=== PATIENT | female | born 1945 | race African-American/Black ===

== ENCOUNTER 2018-02-02 18:48 | Emergency (ER) | payer MEDICARE, OTHER ==
[~2018-02-02] VITALS: Ht 182.9 cm; Wt 113.4 kg
--- NOTE | 2018-02-02 18:55 | NUR ---
[facility]- NON TRAUMATIC LEFT LEG PAIN. STARTED TODAY. PT FINISHED HER DIALYSIS. PATIENT IS TRACH DEPENDENT. BREATHING EVEN AND UNLABORED. NO DISTRESS. VITALS STABLE. SAFETY AND COMFORT MEASURES IN PLACE. AWAITING MD ORDERS.
--- NOTE | 2018-02-02 19:16 | NUR ---
REPORT GIVEN TO RAVIN KHANNA FOR MADELAINE.
--- NOTE | 2018-02-02 19:17 | NUR ---
RECEIVED REPORT FROM [facility] FOR MADELAINE
[2018-02-02 19:50] LABS: BASOPHILS % (AUTO) 0.3 % (0.0-2.0); EOSINOPHILS % (AUTO) 4.7 % (0.0-6.0); HEMATOCRIT 32 % (33-45); HEMOGLOBIN 10.4 g/dL (11.5-14.8); LYMPHOCYTES % (AUTO) 17.4 % (20.0-44.0); MEAN CORPUSCULAR HGB CONC 33 g/dl (31.0-36.0); MEAN CORPUSCULAR VOLUME 92 fL (82-100); MONOCYTES # (AUTO) 0.3 /CMM (0.1-1.30); MONOCYTES % (AUTO) 5.9 % (2.0-12.0); NEUTROPHILS # (AUTO) 4.3 /CMM (1.8-8.9); NEUTROPHILS % (AUTO) 71.7 % (43.0-81.0); PLATELET COUNT (AUTO) 237 /CMM (150-450); RDW COEFFICIENT OF VARIATION 18.2 (11.5-15.0); RED BLOOD CELL COUNT(AUTO) 3.44 MIL/uL (4.0-5.2); WHITE BLOOD COUNT (AUTO) 5.9 K/uL (4.3-11.0)
[2018-02-02 20:03] LABS: INR 0.88 (0.85-1.15)
[2018-02-02 20:16] LABS: CALCIUM, SERUM 9.4 mg/dL (8.5-10.1); CARBON DIOXIDE 28 mmol/L (21-32); CHLORIDE 98 mmol/L (98-107); CREATININE 1.8 mg/dL (0.6-1.3); GLUCOSE 89 mg/dL (74-106); POTASSIUM 3.1 mmol/L (3.5-5.1); SODIUM SERUM 135 mmol/L (136-145); UREA NITROGEN, BLOOD 24 mg/dL (7-18)
[2018-02-02] MEDS ORDERED: POTASSIUM CHLORIDE 20 MEQ TAB.PRT.SR PO ONE ×2 (20:55→21:00)
[2018-02-02] MEDS ORDERED: HYDROCODONE/APAP 10/325MG 1 EA TABLET ONE (20:55)
[2018-02-02] MEDS ORDERED: HYDROCODONE/APAP 10/325MG 1 EA TABLET GT ONE (21:00)
--- NOTE | 2018-02-02 21:01 | NUR ---
CALLED [facility] FOR TRANSPORT ETA OF 30 MINS WAS GIVEN. TRIP# [id number]
--- NOTE | 2018-02-02 21:34 | NUR ---
Patient discharged to home in stable condition. Written and verbal after care instructions given. Patient verbalizes understanding of instruction.IV removed. Catheter intact and site benign. Pressure and 4x4 applied to site. No bleeding noted. REPORT GIVEN TO [facility] FOR MADELAINE. [facility] VSS UPON DISCHARGE
[2018-02-02 21:36] VITALS: BP 102/54
== END 2018-02-02 21:39 | disposition home or self-care (01) ==
LOC: ER 18:52
DX: S83.142A Lateral subluxation of proximal end of tibia, left knee, initial encounter (principal); G89.29 Other chronic pain; M25.562 Pain in left knee; E87.6 Hypokalemia; D64.9 Anemia, unspecified; E11.22 Type 2 diabetes mellitus with diabetic chronic kidney disease; N18.6 End stage renal disease; Z99.2 Dependence on renal dialysis; G40.909 Epilepsy, unspecified, not intractable, without status epilepticus; I48.91 Unspecified atrial fibrillation; Z93.1 Gastrostomy status; Z93.0 Tracheostomy status; X58.XXXA Exposure to other specified factors, initial encounter; Y93.89 Activity, other specified; Y92.89 Other specified places as the place of occurrence of the external cause; Y99.8 Other external cause status
CPT/HCPCS: 36415; 73560; 80048; 85025; 85730; 93970; 99285; A4606; Z7610

== ENCOUNTER 2018-03-20 14:54 | Inpatient (IN) | payer MEDICARE, OTHER ==
[~2018-03-20] VITALS: Ht 162.6 cm; Wt 112.0 kg
[2018-03-20] MEDS ORDERED: NA P133E RC (15:30)
[2018-03-20] MEDS ORDERED: VIT1TABL44 GT (15:30)
[2018-03-20] MEDS ORDERED: HYDR-3974 GT (15:30)
[2018-03-20] MEDS ORDERED: DIPH25CA6 GT (15:30)
[2018-03-20] MEDS ORDERED: ACET650S26 GT (15:30)
[2018-03-20] MEDS ORDERED: MIDO10TA GT (15:30)
[2018-03-20] MEDS ORDERED: AMIN30LI4 GT (15:30)
[2018-03-20] MEDS ORDERED: ASCO500T9 GT (15:30)
[2018-03-20] MEDS ORDERED: FAMO20TA8 GT (15:30)
[2018-03-20] MEDS ORDERED: [UNRECOGNIZED DRUG - CODE] GT (15:30)
[2018-03-20] MEDS ORDERED: MAGN400O6 GT (15:30)
[2018-03-20] MEDS ORDERED: AMIO200T4 GT (15:30)
[2018-03-20] MEDS ORDERED: IV NS 0.9% 500 ML BAG IV ONE ×2 (15:30→18:00)
[2018-03-20] MEDS ORDERED: BISA10SU8 RC (15:30)
[2018-03-20] MEDS ORDERED: LEVE100S GT (15:30)
[2018-03-20] MEDS ORDERED: PRED20TA GT (15:30)
[2018-03-20] MEDS ORDERED: NUT.237L67 GT (15:30)
[2018-03-20] MEDS ORDERED: LEVO125T8 GT (15:30)
[2018-03-20 15:57] LABS: BASOPHILS % (AUTO) 0.2 % (0.0-2.0); EOSINOPHILS % (AUTO) 0.3 % (0.0-6.0); HEMATOCRIT 42 % (33-45); HEMOGLOBIN 13.1 g/dL (11.5-14.8); LYMPHOCYTES # (AUTO) 1.4 /CMM (0.8-4.8); LYMPHOCYTES % (AUTO) 7.5 % (20.0-44.0); MEAN CORPUSCULAR HEMOGLOBIN 29 PG (26.0-33.0); MEAN CORPUSCULAR HGB CONC 31 g/dl (31.0-36.0); MEAN CORPUSCULAR VOLUME 93 fL (82-100); MONOCYTES # (AUTO) 0.1 /CMM (0.1-1.30); MONOCYTES % (AUTO) 0.5 % (2.0-12.0); NEUTROPHILS % (AUTO) 91.5 % (43.0-81.0); PLATELET COUNT (AUTO) 83 /CMM (150-450); RDW COEFFICIENT OF VARIATION 18.4 (11.5-15.0); RED BLOOD CELL COUNT(AUTO) 4.56 MIL/uL (4.0-5.2); WHITE BLOOD COUNT (AUTO) 18.6 K/uL (4.3-11.0)
[2018-03-20 16:06] LABS: CALCIUM, SERUM 8.3 mg/dL (8.5-10.1); CARBON DIOXIDE 21 mmol/L (21-32); CHLORIDE 95 mmol/L (98-107); CREATININE 3.4 mg/dL (0.6-1.3); GLUCOSE 156 mg/dL (74-106); POTASSIUM 3.7 mmol/L (3.5-5.1); SODIUM SERUM 131 mmol/L (136-145); UREA NITROGEN, BLOOD 64 mg/dL (7-18)
[2018-03-20 16:12] LABS: ALANINE AMINOTRANSFERASE 21 U/L (12-78); ALKALINE PHOSPHATASE 216 U/L (46-116); ASPARTATE AMINOTRANSFERASE 18 U/L (15-37); BILIRUBIN,DIRECT 0.1 mg/dL (0.0-0.2); BILIRUBIN,TOTAL 0.4 mg/dL (0.2-1.0); TOTAL PROTEIN, SERUM 6.1 g/dL (6.4-8.2)
[2018-03-20 16:14] LABS: ALBUMIN 1.4 g/dL (3.4-5.0); TROPONIN I 0.139 ng/mL (0.00-0.056)
[2018-03-20] MEDS ORDERED: PIPERACILLIN /TAZOBACTAM 3.375 G in IV D5W 50 ML IV ONE (16:30)
[2018-03-20] MEDS ORDERED: VANCOMYCIN 1 GM in IV D5W 250 ML IV ONE (16:30)
[2018-03-20] MEDS ORDERED: ASPIRIN 325 MG TABLET PEG ONE (17:00)
[2018-03-20] MEDS ORDERED: ASPIRIN 325 MG TABLET ONE (17:06)
[2018-03-20 18:30] VITALS: BP 84/45
[2018-03-20] MEDS ORDERED: DEXTROSE 50%-WATER 50 ML DISP.SYRIN IV PRN (18:30)
[2018-03-20 18:44] LABS: BAND % (MANUAL) 7 % (0.0-5.0); EOSINOPHILS % (MANUAL) 1 % (0-4); LYMPHOCYTES % (MANUAL) 6 % (16-48); MONOCYTES % (MANUAL) 8 % (0-11.0); NEUTROPHILS % (MANUAL) 77 (42-76); REACTIVE LYMPHOCYTES 1 % (0-0)
[2018-03-20] MEDS ORDERED: FEE PK DOSING 1 MIN EA MC ONE (18:48)
[2018-03-20] MEDS ORDERED: BISACODYL SUPP (10 MG) 10 MG/SUPP.RECT SUPP.RECT RC PRN (19:00)
[2018-03-20] MEDS ORDERED: MAGNESIUM HYDROXIDE 30 ML UDC GT PRN (19:00)
[2018-03-20] MEDS ORDERED: diphenhydrAMINE HCL 25 MG CAPSULE PO PRN (19:00)
[2018-03-20] MEDS ORDERED: NA PHOS,M-B/NA PHOS,DI-BA 1 EA ENEMA RC PRN (19:00)
[2018-03-20] MEDS: IV NS 0.9% 1,000 ML IV SCH (19:15)
[2018-03-20] MEDS: predniSONE 20 MG TABLET GT SCH (19:17)
[2018-03-20 20:00] VITALS: BP 89/40
[2018-03-20] MEDS ORDERED: BISMUTH SUBSALICYLATE 262 MG/15 ML BOTTLE GT SCH (21:00)
[2018-03-20] MEDS ORDERED: MIDODRINE HCL (5MG) 5 MG TABLET PO ONE (22:00)
[2018-03-20] MEDS: NEPRO 1,000 ML BOTTLE GT PRN (23:21)
[2018-03-21] VITALS (83 sets, daily range): BP systolic 52–169; BP diastolic 25–96
[2018-03-21] MEDS: INSULIN REGULAR, HUMAN 100 UNIT/ML 3 ML VIAL SQ PRN ×4 (00:20→17:39)
[2018-03-21] MEDS: BLOOD SUGAR DIAGNOSTIC 1 EACH STRIP IN SCH ×5 (00:20→23:58)
[2018-03-21] MEDS ORDERED: NOREPINEPHRINE 4 MG/4 ML AMPUL IV ONE (03:04)
[2018-03-21] MEDS: NOREPINEPHRINE 16 MG in IV D5W 500 ML IV PRN ×2 (03:12→15:46)
[2018-03-21] MEDS: IV NS 0.9% 1,000 ML IV SCH (03:14)
[2018-03-21] MEDS: PIPERACILLIN /TAZOBACTAM 2.25 G in IV D5W 50 ML IV SCH ×3 (04:28→20:00)
[2018-03-21 05:31] LABS: ABG OXYGEN SATURATION 99.3 % (92.0-98.5); ABG PCO2 31.9 mmHg (35.0-45.0); ABG PH 7.318 (7.350-7.450); ABG PO2 287.6 mmHg (75.0-100.0); AaDO2 393.5 mmHg; COHb 0.9 % (0.5-1.5); MetHb 0.3 % (0.0-1.5); O2Hb 98.1 % (94.0-97.0); PEEP,BG 5 cm H2O; SITE, ABG Left Radial; VT, ABG 500 mL
[2018-03-21] MEDS: PROSOURCE / PROSTAT (PYXIS) 30 ML UDC GT SCH ×4 (08:52→20:00)
[2018-03-21] MEDS: LEVETIRACETAM SOL (5 ML) 100 MG/ML UDC GT SCH (08:52)
[2018-03-21] MEDS: predniSONE 20 MG TABLET GT SCH (08:53)
[2018-03-21] MEDS: FAMOTIDINE (20 MG) 20 MG TABLET GT SCH (08:53)
[2018-03-21] MEDS: MIDODRINE HCL (5MG) 5 MG TABLET PO SCH ×3 (08:53→20:00)
[2018-03-21] MEDS: Z GUARD REMEDY 2 OZ OINT TP SCH (08:53)
[2018-03-21] MEDS: ASCORBIC ACID 500 MG TABLET GT SCH (08:53)
[2018-03-21] MEDS: VIT B CMPLX 3/FA/VIT C/BIOTIN 1 TAB TABLET GT SCH (08:53)
[2018-03-21] MEDS: AMIODARONE HCL 200 MG TABLET GT SCH ×2 (08:53→17:15)
[2018-03-21] MEDS: LEVOTHYROXINE SODIUM 125 MCG TABLET GT SCH (08:53)
[2018-03-21] MEDS: HYDROCODONE/APAP 5/325MG 1 EACH TABLET GT SCH (08:53)
[2018-03-21 11:25] LABS: HEMATOCRIT 39 % (33-45); HEMOGLOBIN 12.3 g/dL (11.5-14.8); MEAN CORPUSCULAR HEMOGLOBIN 30 PG (26.0-33.0); MEAN CORPUSCULAR HGB CONC 31 g/dl (31.0-36.0); MEAN CORPUSCULAR VOLUME 94 fL (82-100); PLATELET COUNT (AUTO) 85 /CMM (150-450); RDW COEFFICIENT OF VARIATION 19.8 (11.5-15.0); RED BLOOD CELL COUNT(AUTO) 4.17 MIL/uL (4.0-5.2); WHITE BLOOD COUNT (AUTO) 17.3 K/uL (4.3-11.0)
[2018-03-21 11:43] LABS: ALANINE AMINOTRANSFERASE 22 U/L (12-78); ALKALINE PHOSPHATASE 200 U/L (46-116); ASPARTATE AMINOTRANSFERASE 15 U/L (15-37); BILIRUBIN,DIRECT 0.1 mg/dL (0.0-0.2); BILIRUBIN,TOTAL 0.4 mg/dL (0.2-1.0); CALCIUM, SERUM 7.8 mg/dL (8.5-10.1); CARBON DIOXIDE 22 mmol/L (21-32); CHLORIDE 97 mmol/L (98-107); CREATININE 3.5 mg/dL (0.6-1.3); GLUCOSE 156 mg/dL (74-106); PHOSPHORUS 2.2 mg/dL (2.5-4.9); POTASSIUM 3.5 mmol/L (3.5-5.1); SODIUM SERUM 132 mmol/L (136-145); TOTAL PROTEIN, SERUM 5.2 g/dL (6.4-8.2); UREA NITROGEN, BLOOD 67 mg/dL (7-18)
[2018-03-21 11:46] LABS: ALBUMIN 1.1 g/dL (3.4-5.0)
[2018-03-21 12:28] LABS: BAND % (MANUAL) 14 % (0.0-5.0); LYMPHOCYTES % (MANUAL) 6 % (16-48); MONOCYTES % (MANUAL) 6 % (0-11.0); NEUTROPHILS % (MANUAL) 74 (42-76)
[2018-03-21] MEDS: ALBUTEROL HALF STRENGTH 1.25 MG/3 ML VIAL.NEB NEB SCH ×4 (12:30→23:42)
[2018-03-21] MEDS: IPRATROPIUM NEB FS 0.5 MG/2.5 ML AMPUL.NEB NEB SCH ×4 (12:30→23:42)
[2018-03-21] MEDS ORDERED: Sodium Phosphate 7.5 MMOL in IV D5W 100 ML IV ONE (12:30)
[2018-03-21] MEDS: IV NS 0.9% 1,000 ML IV PRN (12:38)
[2018-03-21 13:10] LABS: D-DIMER 2.24 mg/L(FEU (0.17-0.50)
[2018-03-21] MEDS: ALBUMIN 25% 25 GM in PREMIX 1 EA IV PRN (14:15)
[2018-03-21] MEDS ORDERED: VANCOMYCIN 1 GM in IV D5W 250 ML IV ONE (15:00)
[2018-03-21] MEDS: HYDROCORTISONE SOD SUCCINATE 100 MG/2 ML VIAL IV SCH ×2 (15:33→17:14)
[2018-03-21] MEDS ORDERED: VANCOMYCIN 500 MG in IV D5W 100 ML IV PRN (16:00)
[2018-03-21] MEDS: HYDROCODONE/APAP 5/325MG 1 EACH TABLET PO PRN (17:14)
[2018-03-21] MEDS: MUPIROCIN OINT 2% 22 GM TUBE SCH (20:03)
[2018-03-22] VITALS (88 sets, daily range): BP systolic 84–156; BP diastolic 42–73
[2018-03-22] MEDS: HYDROCODONE/APAP 5/325MG 1 EACH TABLET PO PRN (00:14)
[2018-03-22] MEDS: IPRATROPIUM NEB FS 0.5 MG/2.5 ML AMPUL.NEB NEB SCH ×6 (03:00→23:18)
[2018-03-22] MEDS: ALBUTEROL HALF STRENGTH 1.25 MG/3 ML VIAL.NEB NEB SCH ×6 (03:00→23:18)
[2018-03-22] MEDS: MIDODRINE HCL (5MG) 5 MG TABLET PO SCH ×3 (04:02→21:25)
[2018-03-22] MEDS: PIPERACILLIN /TAZOBACTAM 2.25 G in IV D5W 50 ML IV SCH ×3 (04:02→21:20)
[2018-03-22 04:40] LABS: HEMATOCRIT 31 % (33-45); HEMOGLOBIN 9.9 g/dL (11.5-14.8); MEAN CORPUSCULAR HEMOGLOBIN 30 PG (26.0-33.0); MEAN CORPUSCULAR HGB CONC 32 g/dl (31.0-36.0); MEAN CORPUSCULAR VOLUME 94 fL (82-100); PLATELET COUNT (AUTO) 58 /CMM (150-450); RDW COEFFICIENT OF VARIATION 19.1 (11.5-15.0); RED BLOOD CELL COUNT(AUTO) 3.33 MIL/uL (4.0-5.2); WHITE BLOOD COUNT (AUTO) 13.9 K/uL (4.3-11.0)
[2018-03-22 04:55] LABS: CALCIUM, SERUM 7.4 mg/dL (8.5-10.1); CARBON DIOXIDE 24 mmol/L (21-32); CHLORIDE 100 mmol/L (98-107); CREATININE 2.9 mg/dL (0.6-1.3); GLUCOSE 155 mg/dL (74-106); POTASSIUM 3.1 mmol/L (3.5-5.1); SODIUM SERUM 135 mmol/L (136-145); UREA NITROGEN, BLOOD 51 mg/dL (7-18)
[2018-03-22 05:04] LABS: BAND % (MANUAL) 5 % (0.0-5.0); LYMPHOCYTES % (MANUAL) 11 % (16-48); MONOCYTES % (MANUAL) 3 % (0-11.0); NEUTROPHILS % (MANUAL) 81 (42-76)
[2018-03-22] MEDS: IV NS 0.9% 1,000 ML IV PRN ×2 (05:48→18:35)
[2018-03-22] MEDS: BLOOD SUGAR DIAGNOSTIC 1 EACH STRIP IN SCH ×3 (05:48→17:09)
[2018-03-22 07:57] LABS: ABG BASE EXCESS -2.7 mmol/L; ABG OXYGEN SATURATION 98.5 % (92.0-98.5); ABG PH 7.374 (7.350-7.450); ABG PO2 168.9 mmHg (75.0-100.0); AaDO2 143.7 mmHg; COHb 0.2 % (0.5-1.5); MetHb 0.8 % (0.0-1.5); O2Hb 97.5 % (94.0-97.0); PEEP,BG 0 cm H2O; SITE, ABG A-Line; VENT MODE, BG AC 16 500 +0 50%; VT, ABG 500 mL
[2018-03-22] MEDS: LEVOTHYROXINE SODIUM 125 MCG TABLET GT SCH (08:09)
[2018-03-22] MEDS: ASCORBIC ACID 500 MG TABLET GT SCH (08:09)
[2018-03-22] MEDS: HYDROCORTISONE SOD SUCCINATE 100 MG/2 ML VIAL IV SCH ×3 (08:10→16:59)
[2018-03-22] MEDS: Z GUARD REMEDY 2 OZ OINT TP SCH (08:10)
[2018-03-22] MEDS: FAMOTIDINE (20 MG) 20 MG TABLET GT SCH (08:10)
[2018-03-22] MEDS: AMIODARONE HCL 200 MG TABLET GT SCH ×2 (08:10→16:24)
[2018-03-22] MEDS: HYDROCODONE/APAP 5/325MG 1 EACH TABLET GT SCH (08:10)
[2018-03-22] MEDS: LEVETIRACETAM SOL (5 ML) 100 MG/ML UDC GT SCH (08:10)
[2018-03-22] MEDS: VIT B CMPLX 3/FA/VIT C/BIOTIN 1 TAB TABLET GT SCH (08:10)
[2018-03-22] MEDS: MUPIROCIN OINT 2% 22 GM TUBE SCH ×2 (08:11→21:00)
[2018-03-22] MEDS: PROSOURCE / PROSTAT (PYXIS) 30 ML UDC GT SCH ×4 (08:12→21:20)
[2018-03-22] MEDS: INSULIN REGULAR, HUMAN 100 UNIT/ML 3 ML VIAL SQ PRN (12:34)
[2018-03-22] MEDS ORDERED: POTASSIUM CL. PREMIX PERIPHER. 50 ML IV SCH (15:00)
[2018-03-22] MEDS: LACTOBACILLUS RHAMNOSUS GG 1 EACH CAP.SPRINK GT SCH (16:59)
[2018-03-22] MEDS: NYSTATIN TOP POWDER 15 GM BOTTLE TP SCH (16:59)
[2018-03-22] MEDS: NEPRO 1,000 ML BOTTLE GT PRN (17:01)
[2018-03-22] MEDS ORDERED: SILVER SULFADIAZINE CREAM 25 GM TUBE TP SCH (18:30)
[2018-03-22] MEDS ORDERED: MUPIROCIN OINT 2% 22 GM TUBE ONE (21:56)
[2018-03-23] VITALS (76 sets, daily range): BP systolic 89–154; BP diastolic 40–76
[2018-03-23] MEDS: INSULIN REGULAR, HUMAN 100 UNIT/ML 3 ML VIAL SQ PRN ×3 (00:45→17:58)
[2018-03-23] MEDS: BLOOD SUGAR DIAGNOSTIC 1 EACH STRIP IN SCH ×5 (00:46→23:56)
[2018-03-23] MEDS: HYDROCODONE/APAP 5/325MG 1 EACH TABLET PO PRN (03:25)
[2018-03-23] MEDS: IPRATROPIUM NEB FS 0.5 MG/2.5 ML AMPUL.NEB NEB SCH ×6 (03:35→23:11)
[2018-03-23] MEDS: ALBUTEROL HALF STRENGTH 1.25 MG/3 ML VIAL.NEB NEB SCH ×6 (03:35→23:12)
[2018-03-23] MEDS: NYSTATIN TOP POWDER 15 GM BOTTLE TP SCH ×5 (04:26→17:48)
[2018-03-23 04:40] LABS: HEMATOCRIT 34 % (33-45); HEMOGLOBIN 10.5 g/dL (11.5-14.8); MEAN CORPUSCULAR HEMOGLOBIN 29 PG (26.0-33.0); MEAN CORPUSCULAR HGB CONC 31 g/dl (31.0-36.0); MEAN CORPUSCULAR VOLUME 94 fL (82-100); PLATELET COUNT (AUTO) 61 /CMM (150-450); RDW COEFFICIENT OF VARIATION 19.7 (11.5-15.0); RED BLOOD CELL COUNT(AUTO) 3.57 MIL/uL (4.0-5.2); WHITE BLOOD COUNT (AUTO) 12.1 K/uL (4.3-11.0)
[2018-03-23] MEDS: PIPERACILLIN /TAZOBACTAM 2.25 G in IV D5W 50 ML IV SCH ×3 (04:41→20:41)
[2018-03-23] MEDS: MIDODRINE HCL (5MG) 5 MG TABLET PO SCH ×3 (04:47→20:41)
[2018-03-23 05:00] LABS: CALCIUM, SERUM 7.3 mg/dL (8.5-10.1); CARBON DIOXIDE 23 mmol/L (21-32); CHLORIDE 100 mmol/L (98-107); CREATININE 3.2 mg/dL (0.6-1.3); GLUCOSE 156 mg/dL (74-106); PHOSPHORUS 1.7 mg/dL (2.5-4.9); POTASSIUM 3.2 mmol/L (3.5-5.1); SODIUM SERUM 137 mmol/L (136-145); UREA NITROGEN, BLOOD 67 mg/dL (7-18)
[2018-03-23 05:50] LABS: BAND % (MANUAL) 9 % (0.0-5.0); LYMPHOCYTES % (MANUAL) 12 % (16-48); MONOCYTES % (MANUAL) 2 % (0-11.0); NEUTROPHILS % (MANUAL) 77 (42-76)
[2018-03-23 08:31] LABS: ABG BASE EXCESS -6.4 mmol/L; ABG OXYGEN SATURATION 95.5 % (92.0-98.5); ABG PCO2 37.1 mmHg (35.0-45.0); ABG PH 7.326 (7.350-7.450); ABG PO2 89.6 mmHg (75.0-100.0); AaDO2 80.7 mmHg; COHb 0.3 % (0.5-1.5); MetHb 0.5 % (0.0-1.5); O2Hb 94.7 % (94.0-97.0); PEEP,BG 0 cm H2O; SITE, ABG A-Line; VT, ABG 500 mL
[2018-03-23] MEDS: LEVOTHYROXINE SODIUM 125 MCG TABLET GT SCH (08:53)
[2018-03-23] MEDS: ASCORBIC ACID 500 MG TABLET GT SCH (08:53)
[2018-03-23] MEDS: HYDROCORTISONE SOD SUCCINATE 100 MG/2 ML VIAL IV SCH ×3 (08:53→17:44)
[2018-03-23] MEDS: FAMOTIDINE (20 MG) 20 MG TABLET GT SCH (08:53)
[2018-03-23] MEDS: HYDROCODONE/APAP 5/325MG 1 EACH TABLET GT SCH (08:53)
[2018-03-23] MEDS: LEVETIRACETAM SOL (5 ML) 100 MG/ML UDC GT SCH (08:53)
[2018-03-23] MEDS: VIT B CMPLX 3/FA/VIT C/BIOTIN 1 TAB TABLET GT SCH (08:53)
[2018-03-23] MEDS: AMIODARONE HCL 200 MG TABLET GT SCH ×2 (08:54→17:00)
[2018-03-23] MEDS: LACTOBACILLUS RHAMNOSUS GG 1 EACH CAP.SPRINK GT SCH ×2 (08:54→17:44)
[2018-03-23] MEDS: PROSOURCE / PROSTAT (PYXIS) 30 ML UDC GT SCH ×4 (08:55→20:40)
[2018-03-23] MEDS: MUPIROCIN OINT 2% 22 GM TUBE SCH ×2 (09:03→20:43)
[2018-03-23] MEDS: Z GUARD REMEDY 2 OZ OINT TP SCH (09:03)
[2018-03-23] MEDS: SILVER SULFADIAZINE CREAM 25 GM TUBE TP SCH (16:44)
[2018-03-23] MEDS: NEPRO 1,000 ML BOTTLE GT PRN (23:57)
[2018-03-24] VITALS (33 sets, daily range): BP systolic 65–202; BP diastolic 25–104
[2018-03-24] MEDS: ALBUTEROL HALF STRENGTH 1.25 MG/3 ML VIAL.NEB NEB SCH ×6 (03:30→23:07)
[2018-03-24] MEDS: IPRATROPIUM NEB FS 0.5 MG/2.5 ML AMPUL.NEB NEB SCH ×6 (03:30→23:07)
[2018-03-24] MEDS: MIDODRINE HCL (5MG) 5 MG TABLET PO SCH ×3 (04:13→21:24)
[2018-03-24] MEDS: PIPERACILLIN /TAZOBACTAM 2.25 G in IV D5W 50 ML IV SCH ×3 (04:14→21:11)
[2018-03-24] MEDS: SILVER SULFADIAZINE CREAM 25 GM TUBE TP SCH ×2 (04:19→16:29)
[2018-03-24] MEDS: NYSTATIN TOP POWDER 15 GM BOTTLE TP SCH ×2 (04:20→16:30)
[2018-03-24 04:39] LABS: HEMATOCRIT 33 % (33-45); HEMOGLOBIN 10.8 g/dL (11.5-14.8); MEAN CORPUSCULAR HEMOGLOBIN 30 PG (26.0-33.0); MEAN CORPUSCULAR HGB CONC 33 g/dl (31.0-36.0); MEAN CORPUSCULAR VOLUME 94 fL (82-100); RDW COEFFICIENT OF VARIATION 20.3 (11.5-15.0); RED BLOOD CELL COUNT(AUTO) 3.56 MIL/uL (4.0-5.2); WHITE BLOOD COUNT (AUTO) 9.7 K/uL (4.3-11.0)
[2018-03-24 04:44] LABS: PLATELET COUNT (AUTO) 45 /CMM (150-450)
[2018-03-24 04:58] LABS: ALANINE AMINOTRANSFERASE 23 U/L (12-78); ALKALINE PHOSPHATASE 242 U/L (46-116); ASPARTATE AMINOTRANSFERASE 16 U/L (15-37); BAND % (MANUAL) 4 % (0.0-5.0); BILIRUBIN,TOTAL 0.3 mg/dL (0.2-1.0); CALCIUM, SERUM 7.3 mg/dL (8.5-10.1); CARBON DIOXIDE 22 mmol/L (21-32); CHLORIDE 103 mmol/L (98-107); CREATININE 2.6 mg/dL (0.6-1.3); GLUCOSE 180 mg/dL (74-106); LYMPHOCYTES % (MANUAL) 12 % (16-48); MONOCYTES % (MANUAL) 2 % (0-11.0); NEUTROPHILS % (MANUAL) 82 (42-76); PHOSPHORUS 1.2 mg/dL (2.5-4.9); POTASSIUM 3.3 mmol/L (3.5-5.1); SODIUM SERUM 139 mmol/L (136-145); TOTAL PROTEIN, SERUM 4.7 g/dL (6.4-8.2); UREA NITROGEN, BLOOD 58 mg/dL (7-18)
[2018-03-24 05:09] LABS: ALBUMIN 1.1 g/dL (3.4-5.0)
[2018-03-24] MEDS: INSULIN REGULAR, HUMAN 100 UNIT/ML 3 ML VIAL SQ PRN ×3 (05:12→17:35)
[2018-03-24] MEDS: BLOOD SUGAR DIAGNOSTIC 1 EACH STRIP IN SCH ×3 (05:13→17:47)
[2018-03-24 08:42] LABS: ABG BASE EXCESS -2.9 mmol/L; ABG OXYGEN SATURATION 97.6 % (92.0-98.5); ABG PCO2 37.8 mmHg (35.0-45.0); ABG PO2 133.1 mmHg (75.0-100.0); AaDO2 36.4 mmHg; COHb 0.3 % (0.5-1.5); MetHb 1.1 % (0.0-1.5); O2Hb 96.2 % (94.0-97.0); PEEP,BG 5 cm H2O; SITE, ABG A-Line; VENT MODE, BG CPAP 12 +5
[2018-03-24] MEDS: FAMOTIDINE (20 MG) 20 MG TABLET GT SCH (09:27)
[2018-03-24] MEDS: LACTOBACILLUS RHAMNOSUS GG 1 EACH CAP.SPRINK GT SCH ×2 (09:27→16:18)
[2018-03-24] MEDS: VIT B CMPLX 3/FA/VIT C/BIOTIN 1 TAB TABLET GT SCH (09:27)
[2018-03-24] MEDS: AMIODARONE HCL 200 MG TABLET GT SCH ×2 (09:28→16:18)
[2018-03-24] MEDS: ASCORBIC ACID 500 MG TABLET GT SCH (09:28)
[2018-03-24] MEDS: HYDROCODONE/APAP 5/325MG 1 EACH TABLET GT SCH (09:28)
[2018-03-24] MEDS: LEVETIRACETAM SOL (5 ML) 100 MG/ML UDC GT SCH (09:28)
[2018-03-24] MEDS: HYDROCORTISONE SOD SUCCINATE 100 MG/2 ML VIAL IV SCH ×3 (09:28→16:18)
[2018-03-24] MEDS: LEVOTHYROXINE SODIUM 125 MCG TABLET GT SCH (09:38)
[2018-03-24] MEDS: Z GUARD REMEDY 2 OZ OINT TP SCH (09:39)
[2018-03-24] MEDS: MUPIROCIN OINT 2% 22 GM TUBE SCH ×2 (09:41→21:12)
[2018-03-24] MEDS: PROSOURCE / PROSTAT (PYXIS) 30 ML UDC GT SCH ×4 (09:49→21:11)
[2018-03-24 20:47] LABS: INR 0.95 (0.87-1.13); THYROID STIMULATING HORMONE 1.149 uIU/mL (0.358-3.74); URIC ACID 4.8 mg/dL (2.6-7.2)
[2018-03-24 21:12] LABS: D-DIMER 3.96 mg/L(FEU (0.17-0.50)
[2018-03-24] MEDS: HYDROCODONE/APAP 5/325MG 1 EACH TABLET PO PRN (21:22)
[2018-03-24 22:30] LABS: RETICULOCYTE COUNT 2.3 % (0.6-2.5)
[2018-03-25] VITALS: BP 154/133
[2018-03-25] MEDS: BLOOD SUGAR DIAGNOSTIC 1 EACH STRIP IN SCH ×5 (00:12→23:06)
[2018-03-25] MEDS: INSULIN REGULAR, HUMAN 100 UNIT/ML 3 ML VIAL SQ PRN ×5 (00:15→23:08)
[2018-03-25] MEDS: ALBUTEROL HALF STRENGTH 1.25 MG/3 ML VIAL.NEB NEB SCH ×6 (02:56→23:11)
[2018-03-25] MEDS: IPRATROPIUM NEB FS 0.5 MG/2.5 ML AMPUL.NEB NEB SCH ×6 (02:56→23:11)
[2018-03-25 04:00] VITALS: BP 137/112
[2018-03-25] MEDS: SILVER SULFADIAZINE CREAM 25 GM TUBE TP SCH ×2 (04:08→17:58)
[2018-03-25] MEDS: MIDODRINE HCL (5MG) 5 MG TABLET PO SCH ×3 (05:00→22:20)
[2018-03-25] MEDS: PIPERACILLIN /TAZOBACTAM 2.25 G in IV D5W 50 ML IV SCH ×2 (05:12→13:33)
[2018-03-25] MEDS: ACETAMINOPHEN 650 MG/20.3 ML UDC GT PRN (05:12)
[2018-03-25] MEDS: NYSTATIN TOP POWDER 15 GM BOTTLE TP SCH ×2 (05:13→18:00)
[2018-03-25 07:00] LABS: HEMATOCRIT 32 % (33-45); MEAN CORPUSCULAR HEMOGLOBIN 30 PG (26.0-33.0); MEAN CORPUSCULAR HGB CONC 31 g/dl (31.0-36.0); MEAN CORPUSCULAR VOLUME 95 fL (82-100); RDW COEFFICIENT OF VARIATION 21.2 (11.5-15.0); RED BLOOD CELL COUNT(AUTO) 3.36 MIL/uL (4.0-5.2); WHITE BLOOD COUNT (AUTO) 8.2 K/uL (4.3-11.0)
[2018-03-25 07:06] LABS: PLATELET COUNT (AUTO) 40 /CMM (150-450)
[2018-03-25 07:24] LABS: CALCIUM, SERUM 7.6 mg/dL (8.5-10.1); CARBON DIOXIDE 25 mmol/L (21-32); CHLORIDE 102 mmol/L (98-107); CREATININE 3.1 mg/dL (0.6-1.3); GLUCOSE 155 mg/dL (74-106); MAGNESIUM 2.1 mg/dL (1.8-2.4); PHOSPHORUS 1.6 mg/dL (2.5-4.9); SODIUM SERUM 140 mmol/L (136-145); UREA NITROGEN, BLOOD 78 mg/dL (7-18); VANCOMYCIN,TROUGH 19 ug/ml (12-20)
[2018-03-25 08:53] LABS: BAND % (MANUAL) 3 % (0.0-5.0); EOSINOPHILS % (MANUAL) 1 % (0-4); LYMPHOCYTES % (MANUAL) 8 % (16-48); MONOCYTES % (MANUAL) 7 % (0-11.0); NEUTROPHILS % (MANUAL) 81 (42-76)
[2018-03-25] MEDS: LACTOBACILLUS RHAMNOSUS GG 1 EACH CAP.SPRINK GT SCH ×2 (10:30→17:58)
[2018-03-25] MEDS: ASCORBIC ACID 500 MG TABLET GT SCH (10:30)
[2018-03-25] MEDS: LEVETIRACETAM SOL (5 ML) 100 MG/ML UDC GT SCH (10:30)
[2018-03-25] MEDS: FAMOTIDINE (20 MG) 20 MG TABLET GT SCH (10:35)
[2018-03-25] MEDS: HYDROCODONE/APAP 5/325MG 1 EACH TABLET GT SCH (10:35)
[2018-03-25] MEDS: HYDROCORTISONE SOD SUCCINATE 100 MG/2 ML VIAL IV SCH ×3 (10:35→18:01)
[2018-03-25] MEDS: Z GUARD REMEDY 2 OZ OINT TP SCH (10:38)
[2018-03-25] MEDS: VIT B CMPLX 3/FA/VIT C/BIOTIN 1 TAB TABLET GT SCH (10:39)
[2018-03-25] MEDS: AMIODARONE HCL 200 MG TABLET GT SCH ×2 (10:41→17:58)
[2018-03-25] MEDS: LEVOTHYROXINE SODIUM 125 MCG TABLET GT SCH (10:46)
[2018-03-25] MEDS: PROSOURCE / PROSTAT (PYXIS) 30 ML UDC GT SCH ×4 (10:51→22:24)
[2018-03-25] MEDS: MUPIROCIN OINT 2% 22 GM TUBE SCH ×2 (10:52→21:00)
[2018-03-25 11:15] VITALS: BP 107/67
[2018-03-25 12:30] VITALS: BP 83/59
[2018-03-25 15:55] LABS: CALCIUM, SERUM 7.3 mg/dL (8.5-10.1); CARBON DIOXIDE 24 mmol/L (21-32); CHLORIDE 103 mmol/L (98-107); CREATININE 2.9 mg/dL (0.6-1.3); GLUCOSE 149 mg/dL (74-106); SODIUM SERUM 137 mmol/L (136-145); UREA NITROGEN, BLOOD 78 mg/dL (7-18)
[2018-03-25 16:00] VITALS: BP 116/84
[2018-03-25] MEDS ORDERED: NEUTRA PHOS 1 POWD.PACKET GT ONE (16:00)
[2018-03-25 20:00] VITALS: BP 96/54
[2018-03-25] MEDS ORDERED: POTASSIUM CHLORIDE 20 MEQ TAB.PRT.SR PO ONE (21:30)
[2018-03-25] MEDS ORDERED: DOSING PER PHARMACY-AMIKACI IV XX PRN (22:00)
[2018-03-25] MEDS ORDERED: GENTAMICIN 80 MG/2 ML VIAL ONE (22:27)
[2018-03-25] MEDS ORDERED: GENTAMICIN 120 MG in IV NS 0.9% 100 ML IV SCH (23:00)
[2018-03-25] MEDS ORDERED: POTASSIUM CHLORIDE 20 MEQ POWDER PACKET GT ONE (23:00)
[2018-03-26] VITALS: BP 143/81
[2018-03-26] MEDS ORDERED: HYDROMORPHONE 1 MG/1 ML DISP.SYRIN IV PRN (02:00)
[2018-03-26] MEDS: IPRATROPIUM NEB FS 0.5 MG/2.5 ML AMPUL.NEB NEB SCH ×6 (03:50→23:23)
[2018-03-26] MEDS: ALBUTEROL HALF STRENGTH 1.25 MG/3 ML VIAL.NEB NEB SCH ×6 (03:51→23:23)
[2018-03-26 04:00] VITALS: BP 119/56
[2018-03-26] MEDS: BLOOD SUGAR DIAGNOSTIC 1 EACH STRIP IN SCH ×3 (05:02→17:35)
[2018-03-26] MEDS: MIDODRINE HCL (5MG) 5 MG TABLET PO SCH ×3 (05:02→22:24)
[2018-03-26] MEDS: SILVER SULFADIAZINE CREAM 25 GM TUBE TP SCH ×2 (05:05→15:49)
[2018-03-26] MEDS: NYSTATIN TOP POWDER 15 GM BOTTLE TP SCH ×2 (05:06→17:37)
[2018-03-26] MEDS ORDERED: HYDROMORPHONE INJ 2 MG/ML DISP.SYRIN ONE (05:29)
[2018-03-26 07:12] LABS: CALCIUM, SERUM 7.4 mg/dL (8.5-10.1); CARBON DIOXIDE 23 mmol/L (21-32); CHLORIDE 102 mmol/L (98-107); CREATININE 3.1 mg/dL (0.6-1.3); GLUCOSE 124 mg/dL (74-106); PHOSPHORUS 1.9 mg/dL (2.5-4.9); POTASSIUM 4.1 mmol/L (3.5-5.1); SODIUM SERUM 139 mmol/L (136-145); UREA NITROGEN, BLOOD 79 mg/dL (7-18)
[2018-03-26 08:00] VITALS: BP 152/68
[2018-03-26] MEDS ORDERED: FEE PK DOSING 1 MIN EA MC ONE ×2 (08:51)
[2018-03-26] MEDS ORDERED: GENTAMICIN IV PRN (09:00)
[2018-03-26] MEDS ORDERED: NS 0.9% IV PRN (09:00)
[2018-03-26] MEDS: HYDROCORTISONE SOD SUCCINATE 100 MG/2 ML VIAL IV SCH ×3 (09:03→17:34)
[2018-03-26] MEDS: LACTOBACILLUS RHAMNOSUS GG 1 EACH CAP.SPRINK GT SCH ×2 (09:03→17:34)
[2018-03-26] MEDS: LEVOTHYROXINE SODIUM 125 MCG TABLET GT SCH (09:03)
[2018-03-26] MEDS: ASCORBIC ACID 500 MG TABLET GT SCH (09:03)
[2018-03-26] MEDS: LEVETIRACETAM SOL (5 ML) 100 MG/ML UDC GT SCH (09:03)
[2018-03-26] MEDS: AMIODARONE HCL 200 MG TABLET GT SCH ×2 (09:03→17:00)
[2018-03-26] MEDS: PROSOURCE / PROSTAT (PYXIS) 30 ML UDC GT SCH ×4 (09:03→22:27)
[2018-03-26] MEDS: VIT B CMPLX 3/FA/VIT C/BIOTIN 1 TAB TABLET GT SCH (09:03)
[2018-03-26] MEDS: HYDROCODONE/APAP 5/325MG 1 EACH TABLET GT SCH (09:04)
[2018-03-26] MEDS: FAMOTIDINE (20 MG) 20 MG TABLET GT SCH (09:04)
[2018-03-26] MEDS: Z GUARD REMEDY 2 OZ OINT TP SCH (09:06)
[2018-03-26] MEDS: MUPIROCIN OINT 2% 22 GM TUBE SCH ×2 (09:08→21:00)
[2018-03-26 09:25] LABS: ABG BASE EXCESS -3.9 mmol/L; ABG PCO2 38.6 mmHg (35.0-45.0); ABG PH 7.357 (7.350-7.450); ABG PO2 93.6 mmHg (75.0-100.0); AaDO2 111.1 mmHg; MetHb 0.4 % (0.0-1.5); O2Hb 95.6 % (94.0-97.0); SITE, ABG Left Brachial; VENT MODE, BG CA 35%
[2018-03-26] MEDS ORDERED: HYDROMORPHONE 2 MG/1 ML SDV IV PRN (11:00)
[2018-03-26] MEDS ORDERED: NEUTRA PHOS 1 POWD.PACKET PO ONE (12:00)
[2018-03-26] MEDS: INSULIN REGULAR, HUMAN 100 UNIT/ML 3 ML VIAL SQ PRN ×2 (12:38→17:38)
[2018-03-26 13:11] LABS: *SPE A/G RATIO 0.5 (0.7-1.7); *SPE ALBUMIN 1.5 g/dL (2.9-4.4); *SPE ALPHA-1-GLOBULIN 0.5 g/dL (0.0-0.4); *SPE ALPHA-2-GLOBULIN 0.9 g/dL (0.4-1.0); *SPE BETA GLOBULIN 0.8 g/dL (0.7-1.3); *SPE GLOBULIN, TOTAL 2.9 g/dL (2.2-3.9); *SPE M-SPIKE Not Observed g/dL (Not Observed); *SPEGAMMA GLOBULIN 0.7 g/dL (0.4-1.8)
[2018-03-26] MEDS ORDERED: AMIKACIN 500 MG in IV D5W 100 ML IV ONE (14:00)
[2018-03-26 16:00] VITALS: BP 87/57
[2018-03-26 17:33] VITALS: BP 102/52
[2018-03-26 20:00] VITALS: BP 110/60
[2018-03-27] MEDS: BLOOD SUGAR DIAGNOSTIC 1 EACH STRIP IN SCH ×5 (00:41→23:42)
[2018-03-27] MEDS: ALBUTEROL HALF STRENGTH 1.25 MG/3 ML VIAL.NEB NEB SCH ×6 (03:41→23:17)
[2018-03-27] MEDS: IPRATROPIUM NEB FS 0.5 MG/2.5 ML AMPUL.NEB NEB SCH ×6 (03:41→23:17)
[2018-03-27 04:00] VITALS: BP 91/50
[2018-03-27] MEDS: MIDODRINE HCL (5MG) 5 MG TABLET PO SCH ×3 (05:05→20:29)
[2018-03-27] MEDS: SILVER SULFADIAZINE CREAM 25 GM TUBE TP SCH ×2 (05:06→16:56)
[2018-03-27] MEDS: NEPRO 1,000 ML BOTTLE GT PRN (05:06)
[2018-03-27] MEDS: NYSTATIN TOP POWDER 15 GM BOTTLE TP SCH ×2 (05:07→16:58)
[2018-03-27] MEDS ORDERED: AMIKACIN 500 MG in IV NS 0.9% 100 ML IV PRN (06:00)
[2018-03-27 06:31] LABS: HEMATOCRIT 31 % (33-45); HEMOGLOBIN 9.9 g/dL (11.5-14.8); MEAN CORPUSCULAR HEMOGLOBIN 30 PG (26.0-33.0); MEAN CORPUSCULAR HGB CONC 32 g/dl (31.0-36.0); MEAN CORPUSCULAR VOLUME 95 fL (82-100); PLATELET COUNT (AUTO) 64 /CMM (150-450); RDW COEFFICIENT OF VARIATION 20.2 (11.5-15.0); RED BLOOD CELL COUNT(AUTO) 3.29 MIL/uL (4.0-5.2); WHITE BLOOD COUNT (AUTO) 7.3 K/uL (4.3-11.0)
[2018-03-27 07:13] LABS: CALCIUM, SERUM 7.5 mg/dL (8.5-10.1); CARBON DIOXIDE 23 mmol/L (21-32); CHLORIDE 102 mmol/L (98-107); CREATININE 3.5 mg/dL (0.6-1.3); GLUCOSE 154 mg/dL (74-106); POTASSIUM 4.4 mmol/L (3.5-5.1); SODIUM SERUM 138 mmol/L (136-145)
[2018-03-27 07:20] LABS: UREA NITROGEN, BLOOD 103 mg/dL (7-18)
[2018-03-27 08:00] VITALS: BP 90/70
[2018-03-27] MEDS: MUPIROCIN OINT 2% 22 GM TUBE SCH ×2 (09:00→20:29)
[2018-03-27] MEDS: AMIODARONE HCL 200 MG TABLET GT SCH ×2 (09:00→16:55)
[2018-03-27] MEDS: HYDROCODONE/APAP 5/325MG 1 EACH TABLET GT SCH (09:00)
[2018-03-27] MEDS: LEVETIRACETAM SOL (5 ML) 100 MG/ML UDC GT SCH (09:34)
[2018-03-27] MEDS: VIT B CMPLX 3/FA/VIT C/BIOTIN 1 TAB TABLET GT SCH (09:34)
[2018-03-27] MEDS: LEVOTHYROXINE SODIUM 125 MCG TABLET GT SCH (09:34)
[2018-03-27] MEDS: ASCORBIC ACID 500 MG TABLET GT SCH (09:34)
[2018-03-27] MEDS: FAMOTIDINE (20 MG) 20 MG TABLET GT SCH (09:34)
[2018-03-27] MEDS: LACTOBACILLUS RHAMNOSUS GG 1 EACH CAP.SPRINK GT SCH ×2 (09:34→16:54)
[2018-03-27] MEDS: HYDROCORTISONE SOD SUCCINATE 100 MG/2 ML VIAL IV SCH ×3 (09:34→16:54)
[2018-03-27] MEDS: PROSOURCE / PROSTAT (PYXIS) 30 ML UDC GT SCH ×4 (09:34→20:26)
[2018-03-27] MEDS: Z GUARD REMEDY 2 OZ OINT TP SCH (09:36)
[2018-03-27 09:46] LABS: BAND % (MANUAL) 2 % (0.0-5.0); LYMPHOCYTES % (MANUAL) 14 % (16-48); METAMYELOCYTES % 1 % (0-0); MONOCYTES % (MANUAL) 2 % (0-11.0); NEUTROPHILS % (MANUAL) 81 (42-76)
[2018-03-27] MEDS: INSULIN REGULAR, HUMAN 100 UNIT/ML 3 ML VIAL SQ PRN (12:42)
[2018-03-27] MEDS: ALBUMIN 25% 25 GM in PREMIX 1 EA IV PRN (13:18)
[2018-03-27 16:00] VITALS: BP 125/65
[2018-03-27] MEDS: HYDROCODONE/APAP 5/325MG 1 EACH TABLET PO PRN (16:54)
[2018-03-27] MEDS: VANCOMYCIN 500 MG in IV D5W 100 ML IV PRN (18:10)
[2018-03-27 20:49] VITALS: BP 84/54
[2018-03-27 21:19] VITALS: BP 124/71
[2018-03-28] MEDS: SILVER SULFADIAZINE CREAM 25 GM TUBE TP SCH ×2 (03:15→17:06)
[2018-03-28] MEDS: IPRATROPIUM NEB FS 0.5 MG/2.5 ML AMPUL.NEB NEB SCH ×6 (03:22→23:15)
[2018-03-28] MEDS: ALBUTEROL HALF STRENGTH 1.25 MG/3 ML VIAL.NEB NEB SCH ×6 (03:22→23:15)
[2018-03-28 04:00] VITALS: BP 136/68
[2018-03-28] MEDS: MIDODRINE HCL (5MG) 5 MG TABLET PO SCH ×3 (05:14→21:50)
[2018-03-28] MEDS: HYDROCODONE/APAP 5/325MG 1 EACH TABLET PO PRN ×2 (05:14→18:53)
[2018-03-28] MEDS: NYSTATIN TOP POWDER 15 GM BOTTLE TP SCH ×2 (05:15→17:07)
[2018-03-28] MEDS: INSULIN REGULAR, HUMAN 100 UNIT/ML 3 ML VIAL SQ PRN ×2 (05:40→17:22)
[2018-03-28] MEDS: BLOOD SUGAR DIAGNOSTIC 1 EACH STRIP IN SCH ×3 (05:44→17:08)
[2018-03-28 07:16] LABS: BASOPHILS % (AUTO) 0.1 % (0.0-2.0); EOSINOPHILS % (AUTO) 0.8 % (0.0-6.0); HEMATOCRIT 28 % (33-45); HEMOGLOBIN 8.6 g/dL (11.5-14.8); LYMPHOCYTES # (AUTO) 0.7 /CMM (0.8-4.8); LYMPHOCYTES % (AUTO) 9.1 % (20.0-44.0); MEAN CORPUSCULAR HEMOGLOBIN 29 PG (26.0-33.0); MEAN CORPUSCULAR HGB CONC 31 g/dl (31.0-36.0); MEAN CORPUSCULAR VOLUME 95 fL (82-100); MONOCYTES % (AUTO) 0.3 % (2.0-12.0); NEUTROPHILS # (AUTO) 7.1 /CMM (1.8-8.9); NEUTROPHILS % (AUTO) 89.7 % (43.0-81.0); PLATELET COUNT (AUTO) 65 /CMM (150-450); RDW COEFFICIENT OF VARIATION 20.2 (11.5-15.0); RED BLOOD CELL COUNT(AUTO) 2.92 MIL/uL (4.0-5.2)
[2018-03-28 07:28] LABS: CALCIUM, SERUM 7.6 mg/dL (8.5-10.1); CARBON DIOXIDE 25 mmol/L (21-32); CHLORIDE 101 mmol/L (98-107); CREATININE 2.9 mg/dL (0.6-1.3); GLUCOSE 149 mg/dL (74-106); POTASSIUM 3.9 mmol/L (3.5-5.1); SODIUM SERUM 136 mmol/L (136-145); UREA NITROGEN, BLOOD 77 mg/dL (7-18)
[2018-03-28 08:00] VITALS: BP_SYST 92; BP_DIAS 46; BP_DIAS 61
[2018-03-28] MEDS: AMIODARONE HCL 200 MG TABLET GT SCH ×2 (09:00→16:05)
[2018-03-28 09:01] LABS: BAND % (MANUAL) 5 % (0.0-5.0); LYMPHOCYTES % (MANUAL) 11 % (16-48); MONOCYTES % (MANUAL) 5 % (0-11.0); NEUTROPHILS % (MANUAL) 79 (42-76)
[2018-03-28] MEDS: LEVETIRACETAM SOL (5 ML) 100 MG/ML UDC GT SCH (09:19)
[2018-03-28] MEDS: HYDROCORTISONE SOD SUCCINATE 100 MG/2 ML VIAL IV SCH ×3 (09:19→17:06)
[2018-03-28] MEDS: PROSOURCE / PROSTAT (PYXIS) 30 ML UDC GT SCH ×4 (09:19→21:49)
[2018-03-28] MEDS: LEVOTHYROXINE SODIUM 125 MCG TABLET GT SCH (09:20)
[2018-03-28] MEDS: FAMOTIDINE (20 MG) 20 MG TABLET GT SCH (09:20)
[2018-03-28] MEDS: LACTOBACILLUS RHAMNOSUS GG 1 EACH CAP.SPRINK GT SCH ×2 (09:20→17:06)
[2018-03-28] MEDS: HYDROCODONE/APAP 5/325MG 1 EACH TABLET GT SCH (09:21)
[2018-03-28] MEDS: ASCORBIC ACID 500 MG TABLET GT SCH (09:21)
[2018-03-28] MEDS: VIT B CMPLX 3/FA/VIT C/BIOTIN 1 TAB TABLET GT SCH (09:21)
[2018-03-28] MEDS: Z GUARD REMEDY 2 OZ OINT TP SCH (09:23)
[2018-03-28] MEDS: MUPIROCIN OINT 2% 22 GM TUBE SCH ×2 (09:25→21:50)
[2018-03-28 14:00] VITALS: BP 130/90
[2018-03-28 16:00] VITALS: BP 130/90
[2018-03-28] MEDS: NEPRO 1,000 ML BOTTLE GT PRN (17:06)
[2018-03-28 21:00] VITALS: BP 156/73
[2018-03-29] MEDS: BLOOD SUGAR DIAGNOSTIC 1 EACH STRIP IN SCH ×5 (00:03→23:26)
[2018-03-29] MEDS: INSULIN REGULAR, HUMAN 100 UNIT/ML 3 ML VIAL SQ PRN ×4 (00:10→23:28)
[2018-03-29] MEDS: ALBUTEROL HALF STRENGTH 1.25 MG/3 ML VIAL.NEB NEB SCH ×6 (03:26→22:31)
[2018-03-29] MEDS: IPRATROPIUM NEB FS 0.5 MG/2.5 ML AMPUL.NEB NEB SCH ×6 (03:26→22:31)
[2018-03-29] MEDS: SILVER SULFADIAZINE CREAM 25 GM TUBE TP SCH ×2 (04:00→17:18)
[2018-03-29 05:00] VITALS: BP 90/60
[2018-03-29] MEDS: NYSTATIN TOP POWDER 15 GM BOTTLE TP SCH ×2 (05:21→17:20)
[2018-03-29] MEDS: MIDODRINE HCL (5MG) 5 MG TABLET PO SCH ×3 (05:31→21:29)
[2018-03-29] MEDS: HYDROCODONE/APAP 5/325MG 1 EACH TABLET PO PRN ×2 (05:32→15:30)
[2018-03-29 07:48] LABS: HEMATOCRIT 28 % (33-45); HEMOGLOBIN 8.8 g/dL (11.5-14.8); MEAN CORPUSCULAR HEMOGLOBIN 30 PG (26.0-33.0); MEAN CORPUSCULAR HGB CONC 31 g/dl (31.0-36.0); MEAN CORPUSCULAR VOLUME 95 fL (82-100); PLATELET COUNT (AUTO) 67 /CMM (150-450); RDW COEFFICIENT OF VARIATION 20.3 (11.5-15.0); RED BLOOD CELL COUNT(AUTO) 2.98 MIL/uL (4.0-5.2); WHITE BLOOD COUNT (AUTO) 9.4 K/uL (4.3-11.0)
[2018-03-29 08:00] VITALS: BP 114/79
[2018-03-29 08:07] LABS: CARBON DIOXIDE 23 mmol/L (21-32); CHLORIDE 100 mmol/L (98-107); CREATININE 3.3 mg/dL (0.6-1.3); GLUCOSE 108 mg/dL (74-106); POTASSIUM 3.5 mmol/L (3.5-5.1); SODIUM SERUM 137 mmol/L (136-145)
[2018-03-29 08:11] LABS: CALCIUM, SERUM 7.5 mg/dL (8.5-10.1)
[2018-03-29 08:12] LABS: UREA NITROGEN, BLOOD 92 mg/dL (7-18)
[2018-03-29 08:26] LABS: BAND % (MANUAL) 12 % (0.0-5.0); LYMPHOCYTES % (MANUAL) 6 % (16-48); METAMYELOCYTES % 1 % (0-0); MONOCYTES % (MANUAL) 8 % (0-11.0); NEUTROPHILS % (MANUAL) 73 (42-76)
[2018-03-29] MEDS: LEVETIRACETAM SOL (5 ML) 100 MG/ML UDC GT SCH (08:54)
[2018-03-29] MEDS: VIT B CMPLX 3/FA/VIT C/BIOTIN 1 TAB TABLET GT SCH (08:55)
[2018-03-29] MEDS: AMIODARONE HCL 200 MG TABLET GT SCH ×2 (08:55→17:00)
[2018-03-29] MEDS: FAMOTIDINE (20 MG) 20 MG TABLET GT SCH (08:55)
[2018-03-29] MEDS: LEVOTHYROXINE SODIUM 125 MCG TABLET GT SCH (08:55)
[2018-03-29] MEDS: ASCORBIC ACID 500 MG TABLET GT SCH (08:55)
[2018-03-29] MEDS: LACTOBACILLUS RHAMNOSUS GG 1 EACH CAP.SPRINK GT SCH ×2 (08:55→17:20)
[2018-03-29] MEDS: HYDROCORTISONE SOD SUCCINATE 100 MG/2 ML VIAL IV SCH ×3 (08:56→17:20)
[2018-03-29] MEDS: PROSOURCE / PROSTAT (PYXIS) 30 ML UDC GT SCH ×4 (08:57→21:28)
[2018-03-29] MEDS: HYDROCODONE/APAP 5/325MG 1 EACH TABLET GT SCH (08:59)
[2018-03-29] MEDS: MUPIROCIN OINT 2% 22 GM TUBE SCH ×2 (11:04→21:28)
[2018-03-29] MEDS: Z GUARD REMEDY 2 OZ OINT TP SCH (11:05)
[2018-03-29] MEDS ORDERED: DOSING PER PHARMACY-AMIKACI IV XX PRN (11:30)
[2018-03-29 13:00] VITALS: BP 89/62
[2018-03-29 16:00] VITALS: BP 107/72
[2018-03-29] MEDS: NEPRO 1,000 ML BOTTLE GT PRN (17:18)
[2018-03-29] MEDS: ALBUMIN 25% 25 GM in PREMIX 1 EA IV PRN (19:48)
[2018-03-29 21:00] VITALS: BP 106/50
[2018-03-29] MEDS: VANCOMYCIN 500 MG in IV D5W 100 ML IV PRN (21:29)
[2018-03-30] VITALS (45 sets, daily range): BP systolic 62–143; BP diastolic 31–81
[2018-03-30] MEDS: ALBUTEROL HALF STRENGTH 1.25 MG/3 ML VIAL.NEB NEB SCH ×6 (02:31→23:34)
[2018-03-30] MEDS: IPRATROPIUM NEB FS 0.5 MG/2.5 ML AMPUL.NEB NEB SCH ×6 (02:31→23:34)
[2018-03-30] MEDS: SILVER SULFADIAZINE CREAM 25 GM TUBE TP SCH ×2 (04:02→16:48)
[2018-03-30] MEDS: MIDODRINE HCL (5MG) 5 MG TABLET PO SCH ×3 (05:39→21:20)
[2018-03-30] MEDS: BLOOD SUGAR DIAGNOSTIC 1 EACH STRIP IN SCH ×3 (05:39→18:20)
[2018-03-30] MEDS: NYSTATIN TOP POWDER 15 GM BOTTLE TP SCH ×2 (05:39→17:12)
[2018-03-30] MEDS: INSULIN REGULAR, HUMAN 100 UNIT/ML 3 ML VIAL SQ PRN ×2 (05:40→18:20)
[2018-03-30 06:27] LABS: HEMATOCRIT 26 % (33-45); HEMOGLOBIN 8.1 g/dL (11.5-14.8); MEAN CORPUSCULAR HEMOGLOBIN 30 PG (26.0-33.0); MEAN CORPUSCULAR HGB CONC 32 g/dl (31.0-36.0); MEAN CORPUSCULAR VOLUME 95 fL (82-100); PLATELET COUNT (AUTO) 82 /CMM (150-450); RDW COEFFICIENT OF VARIATION 20.5 (11.5-15.0); RED BLOOD CELL COUNT(AUTO) 2.69 MIL/uL (4.0-5.2); WHITE BLOOD COUNT (AUTO) 7.5 K/uL (4.3-11.0)
[2018-03-30 06:41] LABS: CALCIUM, SERUM 7.4 mg/dL (8.5-10.1); CARBON DIOXIDE 23 mmol/L (21-32); CHLORIDE 99 mmol/L (98-107); CREATININE 3.3 mg/dL (0.6-1.3); GLUCOSE 115 mg/dL (74-106); MAGNESIUM 2.4 mg/dL (1.8-2.4); PHOSPHORUS 2.6 mg/dL (2.5-4.9); POTASSIUM 3.8 mmol/L (3.5-5.1); SODIUM SERUM 135 mmol/L (136-145)
[2018-03-30 06:43] LABS: UREA NITROGEN, BLOOD 101 mg/dL (7-18)
[2018-03-30 07:09] LABS: EOSINOPHILS % (AUTO) 0.1 % (0.0-6.0); LYMPHOCYTES # (AUTO) 0.8 /CMM (0.8-4.8); LYMPHOCYTES % (AUTO) 11.9 % (20.0-44.0); MONOCYTES % (AUTO) 0.2 % (2.0-12.0); NEUTROPHILS # (AUTO) 6.2 /CMM (1.8-8.9); NEUTROPHILS % (AUTO) 87.8 % (43.0-81.0)
[2018-03-30] MEDS: HYDROCODONE/APAP 5/325MG 1 EACH TABLET GT SCH (08:50)
[2018-03-30] MEDS: LACTOBACILLUS RHAMNOSUS GG 1 EACH CAP.SPRINK GT SCH ×2 (08:50→17:11)
[2018-03-30] MEDS: LEVETIRACETAM SOL (5 ML) 100 MG/ML UDC GT SCH (08:50)
[2018-03-30] MEDS: HYDROCORTISONE SOD SUCCINATE 100 MG/2 ML VIAL IV SCH ×3 (08:50→17:11)
[2018-03-30] MEDS: LEVOTHYROXINE SODIUM 125 MCG TABLET GT SCH (08:51)
[2018-03-30] MEDS: AMIODARONE HCL 200 MG TABLET GT SCH ×2 (08:51→16:57)
[2018-03-30] MEDS: FAMOTIDINE (20 MG) 20 MG TABLET GT SCH (08:51)
[2018-03-30] MEDS: ASCORBIC ACID 500 MG TABLET GT SCH (08:51)
[2018-03-30] MEDS: PROSOURCE / PROSTAT (PYXIS) 30 ML UDC GT SCH ×4 (08:52→21:00)
[2018-03-30] MEDS: VIT B CMPLX 3/FA/VIT C/BIOTIN 1 TAB TABLET GT SCH (08:52)
[2018-03-30] MEDS: MUPIROCIN OINT 2% 22 GM TUBE SCH ×2 (08:52→21:22)
[2018-03-30] MEDS: Z GUARD REMEDY 2 OZ OINT TP SCH (08:53)
[2018-03-30 11:51] LABS: BAND % (MANUAL) 3 % (0.0-5.0); LYMPHOCYTES % (MANUAL) 6 % (16-48); METAMYELOCYTES % 1 % (0-0); MONOCYTES % (MANUAL) 5 % (0-11.0); NEUTROPHILS % (MANUAL) 85 (42-76)
[2018-03-30] MEDS: ACETAMINOPHEN 650 MG/20.3 ML UDC GT PRN (13:08)
[2018-03-30] MEDS ORDERED: NOREPINEPHRINE 16 MG in IV D5W 500 ML IV PRN (14:30)
[2018-03-30] MEDS ORDERED: IV NS 0.9% 500 ML IV ONE ×2 (15:00→17:00)
[2018-03-30 15:37] LABS: ABG BASE EXCESS -5.4 mmol/L; ABG PCO2 29.5 mmHg (35.0-45.0); ABG PH 7.414 (7.350-7.450); ABG PO2 472.3 mmHg (75.0-100.0); AaDO2 211.2 mmHg; COHb 0.1 % (0.5-1.5); MetHb 0.7 % (0.0-1.5); O2Hb 98.2 % (94.0-97.0); SITE, ABG Left Brachial
[2018-03-30] MEDS: MICAFUNGIN SODIUM 100 MG in IV NS 0.9% 100 ML IV SCH (18:38)
[2018-03-30 20:18] LABS: ABG PCO2 32.6 mmHg (35.0-45.0); ABG PH 7.275 (7.350-7.450); ABG PO2 75.1 mmHg (75.0-100.0); AaDO2 172.6 mmHg; COHb 0.3 % (0.5-1.5); MetHb 0.7 % (0.0-1.5); O2Hb 90.1 % (94.0-97.0); SITE, ABG A-Line
[2018-03-30] MEDS ORDERED: LINEZOLID RTU BAG 600 MG in PREMIX 1 EA IV SCH (21:00)
[2018-03-31] VITALS (56 sets, daily range): BP systolic 45–181; BP diastolic 20–79
[2018-03-31] MEDS: BLOOD SUGAR DIAGNOSTIC 1 EACH STRIP IN SCH ×4 (00:33→17:48)
[2018-03-31] MEDS: INSULIN REGULAR, HUMAN 100 UNIT/ML 3 ML VIAL SQ PRN ×3 (02:17→18:02)
[2018-03-31] MEDS: NEPRO 1,000 ML BOTTLE GT PRN (02:51)
[2018-03-31] MEDS: ALBUTEROL HALF STRENGTH 1.25 MG/3 ML VIAL.NEB NEB SCH ×5 (03:51→19:41)
[2018-03-31] MEDS: IPRATROPIUM NEB FS 0.5 MG/2.5 ML AMPUL.NEB NEB SCH ×5 (03:51→19:42)
[2018-03-31 04:42] LABS: HEMATOCRIT 25 % (33-45); HEMOGLOBIN 7.9 g/dL (11.5-14.8); MEAN CORPUSCULAR HEMOGLOBIN 30 PG (26.0-33.0); MEAN CORPUSCULAR HGB CONC 32 g/dl (31.0-36.0); MEAN CORPUSCULAR VOLUME 95 fL (82-100); PLATELET COUNT (AUTO) 101 /CMM (150-450); RDW COEFFICIENT OF VARIATION 20.3 (11.5-15.0); RED BLOOD CELL COUNT(AUTO) 2.64 MIL/uL (4.0-5.2); WHITE BLOOD COUNT (AUTO) 9.8 K/uL (4.3-11.0)
[2018-03-31] MEDS: SILVER SULFADIAZINE CREAM 25 GM TUBE TP SCH ×2 (04:58→16:35)
[2018-03-31] MEDS: NYSTATIN TOP POWDER 15 GM BOTTLE TP SCH ×2 (05:00→09:39)
[2018-03-31] MEDS: MIDODRINE HCL (5MG) 5 MG TABLET PO SCH ×3 (05:01→21:42)
[2018-03-31 05:02] LABS: CALCIUM, SERUM 7.7 mg/dL (8.5-10.1); CARBON DIOXIDE 19 mmol/L (21-32); CHLORIDE 100 mmol/L (98-107); CREATININE 3.8 mg/dL (0.6-1.3); GLUCOSE 192 mg/dL (74-106); MAGNESIUM 2.5 mg/dL (1.8-2.4); POTASSIUM 4.3 mmol/L (3.5-5.1); SODIUM SERUM 135 mmol/L (136-145)
[2018-03-31 05:10] LABS: UREA NITROGEN, BLOOD 96 mg/dL (7-18)
[2018-03-31 05:17] LABS: BAND % (MANUAL) 5 % (0.0-5.0); LYMPHOCYTES % (MANUAL) 13 % (16-48); MONOCYTES % (MANUAL) 3 % (0-11.0); NEUTROPHILS % (MANUAL) 79 (42-76)
[2018-03-31 08:26] LABS: ABG BASE EXCESS -9.1 mmol/L; ABG OXYGEN SATURATION 95.5 % (92.0-98.5); ABG PH 7.293 (7.350-7.450); ABG PO2 102.6 mmHg (75.0-100.0); AaDO2 142.4 mmHg; COHb 0.3 % (0.5-1.5); O2Hb 94.3 % (94.0-97.0); SITE, ABG A-Line
[2018-03-31] MEDS: LACTOBACILLUS RHAMNOSUS GG 1 EACH CAP.SPRINK GT SCH ×2 (08:40→16:36)
[2018-03-31] MEDS: ASCORBIC ACID 500 MG TABLET GT SCH (08:40)
[2018-03-31] MEDS: AMIODARONE HCL 200 MG TABLET GT SCH ×2 (08:40→16:36)
[2018-03-31] MEDS: HYDROCORTISONE SOD SUCCINATE 100 MG/2 ML VIAL IV SCH ×3 (08:40→17:48)
[2018-03-31] MEDS: VIT B CMPLX 3/FA/VIT C/BIOTIN 1 TAB TABLET GT SCH (08:40)
[2018-03-31] MEDS: FAMOTIDINE (20 MG) 20 MG TABLET GT SCH (08:40)
[2018-03-31] MEDS: LEVETIRACETAM SOL (5 ML) 100 MG/ML UDC GT SCH (08:41)
[2018-03-31] MEDS: HYDROCODONE/APAP 5/325MG 1 EACH TABLET GT SCH (08:41)
[2018-03-31] MEDS: LEVOTHYROXINE SODIUM 125 MCG TABLET GT SCH (08:42)
[2018-03-31] MEDS: PROSOURCE / PROSTAT (PYXIS) 30 ML UDC GT SCH ×4 (09:38→21:42)
[2018-03-31] MEDS: MUPIROCIN OINT 2% 22 GM TUBE SCH ×2 (09:39→21:43)
[2018-03-31] MEDS: Z GUARD REMEDY 2 OZ OINT TP SCH (09:40)
[2018-03-31] MEDS: HYDROCODONE/APAP 5/325MG 1 EACH TABLET PO PRN (16:36)
[2018-03-31] MEDS: MICAFUNGIN SODIUM 100 MG in IV NS 0.9% 100 ML IV SCH (18:01)
[2018-03-31] MEDS: NOREPINEPHRINE 16 MG in IV D5W 500 ML IV PRN (23:14)
[2018-04-01] VITALS (58 sets, daily range): BP systolic 86–180; BP diastolic 34–73
[2018-04-01] MEDS: BLOOD SUGAR DIAGNOSTIC 1 EACH STRIP IN SCH ×5 (00:43→23:48)
[2018-04-01] MEDS: INSULIN REGULAR, HUMAN 100 UNIT/ML 3 ML VIAL SQ PRN ×4 (00:47→23:40)
[2018-04-01] MEDS: IPRATROPIUM NEB FS 0.5 MG/2.5 ML AMPUL.NEB NEB SCH ×7 (04:03→23:20)
[2018-04-01] MEDS: ALBUTEROL HALF STRENGTH 1.25 MG/3 ML VIAL.NEB NEB SCH ×7 (04:03→23:20)
[2018-04-01] MEDS: MIDODRINE HCL (5MG) 5 MG TABLET PO SCH ×3 (04:19→21:33)
[2018-04-01] MEDS: NEPRO 1,000 ML BOTTLE GT PRN (04:21)
[2018-04-01] MEDS: SILVER SULFADIAZINE CREAM 25 GM TUBE TP SCH ×2 (04:23→16:05)
[2018-04-01] MEDS: NYSTATIN TOP POWDER 15 GM BOTTLE TP SCH ×2 (04:24→18:24)
[2018-04-01 05:01] LABS: CARBON DIOXIDE 22 mmol/L (21-32); CHLORIDE 101 mmol/L (98-107); GLUCOSE 137 mg/dL (74-106); SODIUM SERUM 137 mmol/L (136-145)
[2018-04-01 05:04] LABS: UREA NITROGEN, BLOOD 127 mg/dL (7-18)
[2018-04-01] MEDS: HYDROCODONE/APAP 5/325MG 1 EACH TABLET PO PRN (05:50)
[2018-04-01] MEDS: NOREPINEPHRINE 16 MG in IV D5W 500 ML IV PRN (08:12)
[2018-04-01] MEDS: LEVETIRACETAM SOL (5 ML) 100 MG/ML UDC GT SCH (08:28)
[2018-04-01] MEDS: LACTOBACILLUS RHAMNOSUS GG 1 EACH CAP.SPRINK GT SCH ×2 (08:28→18:22)
[2018-04-01] MEDS: LEVOTHYROXINE SODIUM 125 MCG TABLET GT SCH (08:28)
[2018-04-01] MEDS: ASCORBIC ACID 500 MG TABLET GT SCH (08:28)
[2018-04-01] MEDS: PROSOURCE / PROSTAT (PYXIS) 30 ML UDC GT SCH ×4 (08:28→21:35)
[2018-04-01] MEDS: HYDROCORTISONE SOD SUCCINATE 100 MG/2 ML VIAL IV SCH ×3 (08:28→18:22)
[2018-04-01] MEDS: FAMOTIDINE (20 MG) 20 MG TABLET GT SCH (08:28)
[2018-04-01] MEDS: VIT B CMPLX 3/FA/VIT C/BIOTIN 1 TAB TABLET GT SCH (08:28)
[2018-04-01] MEDS: HYDROCODONE/APAP 5/325MG 1 EACH TABLET GT SCH (08:29)
[2018-04-01] MEDS: MUPIROCIN OINT 2% 22 GM TUBE SCH ×2 (08:30→21:35)
[2018-04-01] MEDS: Z GUARD REMEDY 2 OZ OINT TP SCH (08:31)
[2018-04-01] MEDS: AMIODARONE HCL 200 MG TABLET GT SCH ×2 (08:33→18:23)
[2018-04-01 10:38] LABS: ABG BASE EXCESS -9.4 mmol/L; ABG PCO2 30.5 mmHg (35.0-45.0); ABG PH 7.328 (7.350-7.450); ABG PO2 148.4 mmHg (75.0-100.0); AaDO2 101.7 mmHg; MetHb 0.7 % (0.0-1.5); O2Hb 97.3 % (94.0-97.0); PEEP,BG 0 cm H2O; SITE, ABG A-Line; VENT MODE, BG AC 16 450 40
[2018-04-01] MEDS ORDERED: HYDROMORPHONE 1 MG/1 ML DISP.SYRIN IV PRN (12:30)
[2018-04-01] MEDS: ALBUMIN 25% 25 GM in PREMIX 1 EA IV PRN (16:04)
[2018-04-02] VITALS (52 sets, daily range): BP systolic 99–166; BP diastolic 38–95
[2018-04-02] MEDS: ALBUTEROL HALF STRENGTH 1.25 MG/3 ML VIAL.NEB NEB SCH ×6 (03:33→22:48)
[2018-04-02] MEDS: IPRATROPIUM NEB FS 0.5 MG/2.5 ML AMPUL.NEB NEB SCH ×6 (03:33→22:48)
[2018-04-02 04:41] LABS: EOSINOPHILS % (AUTO) 0.1 % (0.0-6.0); HEMATOCRIT 22 % (33-45); LYMPHOCYTES # (AUTO) 1.1 /CMM (0.8-4.8); LYMPHOCYTES % (AUTO) 21.7 % (20.0-44.0); MEAN CORPUSCULAR HEMOGLOBIN 30 PG (26.0-33.0); MEAN CORPUSCULAR HGB CONC 32 g/dl (31.0-36.0); MEAN CORPUSCULAR VOLUME 95 fL (82-100); MONOCYTES % (AUTO) 0.1 % (2.0-12.0); NEUTROPHILS # (AUTO) 3.9 /CMM (1.8-8.9); NEUTROPHILS % (AUTO) 78.1 % (43.0-81.0); PLATELET COUNT (AUTO) 67 /CMM (150-450); RDW COEFFICIENT OF VARIATION 21.5 (11.5-15.0); RED BLOOD CELL COUNT(AUTO) 2.28 MIL/uL (4.0-5.2)
[2018-04-02] MEDS: SILVER SULFADIAZINE CREAM 25 GM TUBE TP SCH ×2 (05:01→17:35)
[2018-04-02] MEDS: MIDODRINE HCL (5MG) 5 MG TABLET PO SCH ×3 (05:04→21:20)
[2018-04-02] MEDS: BLOOD SUGAR DIAGNOSTIC 1 EACH STRIP IN SCH ×4 (05:07→23:18)
[2018-04-02] MEDS: NYSTATIN TOP POWDER 15 GM BOTTLE TP SCH ×2 (05:07→17:34)
[2018-04-02 05:08] LABS: CARBON DIOXIDE 23 mmol/L (21-32); CHLORIDE 100 mmol/L (98-107); CREATININE 3.4 mg/dL (0.6-1.3); GLUCOSE 167 mg/dL (74-106); POTASSIUM 3.4 mmol/L (3.5-5.1); SODIUM SERUM 137 mmol/L (136-145)
[2018-04-02 05:09] LABS: UREA NITROGEN, BLOOD 106 mg/dL (7-18)
[2018-04-02 05:10] LABS: HEMOGLOBIN 6.9 g/dL (11.5-14.8)
[2018-04-02] MEDS: INSULIN REGULAR, HUMAN 100 UNIT/ML 3 ML VIAL SQ PRN ×4 (05:12→23:33)
[2018-04-02 06:01] LABS: BAND % (MANUAL) 9 % (0.0-5.0); LYMPHOCYTES % (MANUAL) 10 % (16-48); MONOCYTES % (MANUAL) 1 % (0-11.0); NEUTROPHILS % (MANUAL) 80 (42-76)
[2018-04-02] MEDS: AMIODARONE HCL 200 MG TABLET GT SCH ×2 (09:23→17:34)
[2018-04-02] MEDS: LACTOBACILLUS RHAMNOSUS GG 1 EACH CAP.SPRINK GT SCH ×2 (09:23→17:29)
[2018-04-02] MEDS: LEVETIRACETAM SOL (5 ML) 100 MG/ML UDC GT SCH (09:24)
[2018-04-02] MEDS: VIT B CMPLX 3/FA/VIT C/BIOTIN 1 TAB TABLET GT SCH (09:24)
[2018-04-02] MEDS: HYDROCODONE/APAP 5/325MG 1 EACH TABLET GT SCH (09:25)
[2018-04-02] MEDS: FAMOTIDINE (20 MG) 20 MG TABLET GT SCH (09:26)
[2018-04-02] MEDS: ASCORBIC ACID 500 MG TABLET GT SCH (09:28)
[2018-04-02] MEDS: HYDROCORTISONE SOD SUCCINATE 100 MG/2 ML VIAL IV SCH ×3 (09:28→17:29)
[2018-04-02] MEDS: PROSOURCE / PROSTAT (PYXIS) 30 ML UDC GT SCH ×4 (09:28→21:27)
[2018-04-02] MEDS: LEVOTHYROXINE SODIUM 125 MCG TABLET GT SCH (09:29)
[2018-04-02] MEDS: MUPIROCIN OINT 2% 22 GM TUBE SCH ×2 (09:30→21:22)
[2018-04-02] MEDS: Z GUARD REMEDY 2 OZ OINT TP SCH (09:31)
[2018-04-02 09:57] LABS: ABG BASE EXCESS -7.7 mmol/L; ABG OXYGEN SATURATION 97.6 % (92.0-98.5); ABG PCO2 36.5 mmHg (35.0-45.0); ABG PH 7.307 (7.350-7.450); ABG PO2 136.5 mmHg (75.0-100.0); AaDO2 106.7 mmHg; COHb 0.3 % (0.5-1.5); MetHb 0.5 % (0.0-1.5); O2Hb 96.8 % (94.0-97.0); SITE, ABG A-Line; VT, ABG 450 mL
[2018-04-02] MEDS: VANCOMYCIN 500 MG in IV D5W 100 ML IV PRN (11:23)
[2018-04-03] VITALS (46 sets, daily range): BP systolic 77–159; BP diastolic 32–74
[2018-04-03] MEDS: IPRATROPIUM NEB FS 0.5 MG/2.5 ML AMPUL.NEB NEB SCH ×6 (03:40→23:20)
[2018-04-03] MEDS: ALBUTEROL HALF STRENGTH 1.25 MG/3 ML VIAL.NEB NEB SCH ×6 (03:40→23:20)
[2018-04-03] MEDS: MIDODRINE HCL (5MG) 5 MG TABLET PO SCH ×3 (04:46→20:24)
[2018-04-03] MEDS: SILVER SULFADIAZINE CREAM 25 GM TUBE TP SCH ×2 (04:47→17:01)
[2018-04-03] MEDS: NYSTATIN TOP POWDER 15 GM BOTTLE TP SCH ×2 (04:47→17:02)
[2018-04-03 04:49] LABS: BASOPHILS % (AUTO) 0.1 % (0.0-2.0); EOSINOPHILS % (AUTO) 0.5 % (0.0-6.0); HEMATOCRIT 31 % (33-45); HEMOGLOBIN 8.9 g/dL (11.5-14.8); LYMPHOCYTES # (AUTO) 0.4 /CMM (0.8-4.8); MEAN CORPUSCULAR HEMOGLOBIN 26 PG (26.0-33.0); MEAN CORPUSCULAR HGB CONC 28 g/dl (31.0-36.0); MEAN CORPUSCULAR VOLUME 92 fL (82-100); MONOCYTES # (AUTO) 0.6 /CMM (0.1-1.30); MONOCYTES % (AUTO) 18.3 % (2.0-12.0); NEUTROPHILS # (AUTO) 2.1 /CMM (1.8-8.9); NEUTROPHILS % (AUTO) 68.1 % (43.0-81.0); PLATELET COUNT (AUTO) 51 /CMM (150-450); RDW COEFFICIENT OF VARIATION 21.9 (11.5-15.0); RED BLOOD CELL COUNT(AUTO) 3.41 MIL/uL (4.0-5.2)
[2018-04-03] MEDS: BLOOD SUGAR DIAGNOSTIC 1 EACH STRIP IN SCH ×4 (04:59→23:42)
[2018-04-03 05:15] LABS: CALCIUM, SERUM 8.1 mg/dL (8.5-10.1); CARBON DIOXIDE 19 mmol/L (21-32); CHLORIDE 100 mmol/L (98-107); CREATININE 3.6 mg/dL (0.6-1.3); GLUCOSE 105 mg/dL (74-106); POTASSIUM 3.6 mmol/L (3.5-5.1); SODIUM SERUM 136 mmol/L (136-145)
[2018-04-03 05:19] LABS: UREA NITROGEN, BLOOD 130 mg/dL (7-18)
[2018-04-03 05:29] LABS: LYMPHOCYTES % (MANUAL) 13 % (16-48)
[2018-04-03 05:30] LABS: MONOCYTES % (MANUAL) 6 % (0-11.0)
[2018-04-03 05:32] LABS: BAND % (MANUAL) 15 % (0.0-5.0); NEUTROPHILS % (MANUAL) 66 (42-76)
[2018-04-03] MEDS: ALBUMIN 25% 25 GM in PREMIX 1 EA IV PRN (08:00)
[2018-04-03] MEDS: NOREPINEPHRINE 16 MG in IV D5W 500 ML IV PRN (08:15)
[2018-04-03] MEDS: VIT B CMPLX 3/FA/VIT C/BIOTIN 1 TAB TABLET GT SCH (09:42)
[2018-04-03] MEDS: HYDROCODONE/APAP 5/325MG 1 EACH TABLET GT SCH (09:43)
[2018-04-03] MEDS: LEVETIRACETAM SOL (5 ML) 100 MG/ML UDC GT SCH (09:43)
[2018-04-03] MEDS: LEVOTHYROXINE SODIUM 125 MCG TABLET GT SCH (09:43)
[2018-04-03] MEDS: AMIODARONE HCL 200 MG TABLET GT SCH ×2 (09:43→17:02)
[2018-04-03] MEDS: HYDROCORTISONE SOD SUCCINATE 100 MG/2 ML VIAL IV SCH ×3 (09:43→17:02)
[2018-04-03] MEDS: ASCORBIC ACID 500 MG TABLET GT SCH (09:43)
[2018-04-03] MEDS: LACTOBACILLUS RHAMNOSUS GG 1 EACH CAP.SPRINK GT SCH ×2 (09:43→17:01)
[2018-04-03] MEDS: FAMOTIDINE (20 MG) 20 MG TABLET GT SCH (09:43)
[2018-04-03] MEDS: PROSOURCE / PROSTAT (PYXIS) 30 ML UDC GT SCH ×4 (09:44→20:25)
[2018-04-03] MEDS: Z GUARD REMEDY 2 OZ OINT TP SCH (09:44)
[2018-04-03] MEDS: MUPIROCIN OINT 2% 22 GM TUBE SCH ×2 (09:44→20:24)
[2018-04-03 10:32] LABS: ABG BASE EXCESS -5.6 mmol/L; ABG OXYGEN SATURATION 97.3 % (92.0-98.5); ABG PCO2 36.6 mmHg (35.0-45.0); ABG PH 7.345 (7.350-7.450); ABG PO2 113.3 mmHg (75.0-100.0); AaDO2 129.8 mmHg; COHb 0.1 % (0.5-1.5); MetHb 0.5 % (0.0-1.5); O2Hb 96.7 % (94.0-97.0); SITE, ABG A-Line; VENT MODE, BG AC 16 450 40% +0
[2018-04-03] MEDS ORDERED: LIDOCAINE 1% INJ 50 ML MDV IJ STA (10:54)
[2018-04-03] MEDS: VANCOMYCIN 500 MG in IV D5W 100 ML IV PRN (11:03)
[2018-04-03] MEDS: INSULIN REGULAR, HUMAN 100 UNIT/ML 3 ML VIAL SQ PRN (17:04)
[2018-04-03] MEDS: NEPRO 1,000 ML BOTTLE GT PRN (17:05)
[2018-04-04] VITALS (97 sets, daily range): BP systolic 75–184; BP diastolic 19–86
[2018-04-04] MEDS: NOREPINEPHRINE 16 MG in IV D5W 500 ML IV PRN ×2 (03:31→09:41)
[2018-04-04] MEDS: IPRATROPIUM NEB FS 0.5 MG/2.5 ML AMPUL.NEB NEB SCH ×6 (03:49→23:42)
[2018-04-04] MEDS: ALBUTEROL HALF STRENGTH 1.25 MG/3 ML VIAL.NEB NEB SCH ×6 (03:49→23:42)
[2018-04-04] MEDS: MIDODRINE HCL (5MG) 5 MG TABLET PO SCH ×3 (04:04→21:04)
[2018-04-04] MEDS: NYSTATIN TOP POWDER 15 GM BOTTLE TP SCH ×2 (04:04→16:49)
[2018-04-04] MEDS: SILVER SULFADIAZINE CREAM 25 GM TUBE TP SCH ×2 (04:05→16:46)
[2018-04-04 04:37] LABS: EOSINOPHILS % (AUTO) 0.2 % (0.0-6.0); HEMATOCRIT 25 % (33-45); HEMOGLOBIN 8.1 g/dL (11.5-14.8); LYMPHOCYTES # (AUTO) 0.4 /CMM (0.8-4.8); LYMPHOCYTES % (AUTO) 11.7 % (20.0-44.0); MEAN CORPUSCULAR HEMOGLOBIN 29 PG (26.0-33.0); MEAN CORPUSCULAR HGB CONC 32 g/dl (31.0-36.0); MEAN CORPUSCULAR VOLUME 91 fL (82-100); MONOCYTES % (AUTO) 0.3 % (2.0-12.0); NEUTROPHILS # (AUTO) 3.2 /CMM (1.8-8.9); NEUTROPHILS % (AUTO) 87.8 % (43.0-81.0); RDW COEFFICIENT OF VARIATION 22.4 (11.5-15.0); RED BLOOD CELL COUNT(AUTO) 2.78 MIL/uL (4.0-5.2); WHITE BLOOD COUNT (AUTO) 3.6 K/uL (4.3-11.0)
[2018-04-04 04:55] LABS: PLATELET COUNT (AUTO) 27 /CMM (150-450)
[2018-04-04 05:00] LABS: CALCIUM, SERUM 8.5 mg/dL (8.5-10.1); CARBON DIOXIDE 17 mmol/L (21-32); CHLORIDE 101 mmol/L (98-107); CREATININE 3.2 mg/dL (0.6-1.3); GLUCOSE 97 mg/dL (74-106); POTASSIUM 3.2 mmol/L (3.5-5.1); SODIUM SERUM 139 mmol/L (136-145)
[2018-04-04 05:01] LABS: UREA NITROGEN, BLOOD 98 mg/dL (7-18)
[2018-04-04] MEDS: BLOOD SUGAR DIAGNOSTIC 1 EACH STRIP IN SCH ×3 (05:07→17:45)
[2018-04-04 05:16] LABS: BAND % (MANUAL) 9 % (0.0-5.0); LYMPHOCYTES % (MANUAL) 12 % (16-48); MONOCYTES % (MANUAL) 5 % (0-11.0); NEUTROPHILS % (MANUAL) 74 (42-76)
[2018-04-04 08:46] LABS: ABG BASE EXCESS -11.5 mmol/L; ABG OXYGEN SATURATION 95.1 % (92.0-98.5); ABG PCO2 37.5 mmHg (35.0-45.0); ABG PH 7.227 (7.350-7.450); ABG PO2 92.4 mmHg (75.0-100.0); AaDO2 149.7 mmHg; COHb 0.3 % (0.5-1.5); MetHb 0.8 % (0.0-1.5); O2Hb 94.1 % (94.0-97.0); SITE, ABG A-Line; VENT MODE, BG AC 16 450 40%
[2018-04-04] MEDS: HYDROCODONE/APAP 5/325MG 1 EACH TABLET GT SCH (09:00)
[2018-04-04] MEDS: AMIODARONE HCL 200 MG TABLET GT SCH ×2 (09:00→16:47)
[2018-04-04] MEDS: ASCORBIC ACID 500 MG TABLET GT SCH (09:18)
[2018-04-04] MEDS: VIT B CMPLX 3/FA/VIT C/BIOTIN 1 TAB TABLET GT SCH (09:18)
[2018-04-04] MEDS: LACTOBACILLUS RHAMNOSUS GG 1 EACH CAP.SPRINK GT SCH ×2 (09:18→16:48)
[2018-04-04] MEDS: LEVETIRACETAM SOL (5 ML) 100 MG/ML UDC GT SCH (09:18)
[2018-04-04] MEDS: LEVOTHYROXINE SODIUM 125 MCG TABLET GT SCH (09:18)
[2018-04-04] MEDS: HYDROCORTISONE SOD SUCCINATE 100 MG/2 ML VIAL IV SCH ×3 (09:18→16:48)
[2018-04-04] MEDS: MUPIROCIN OINT 2% 22 GM TUBE SCH ×2 (09:19→21:12)
[2018-04-04] MEDS: FAMOTIDINE (20 MG) 20 MG TABLET GT SCH (09:19)
[2018-04-04] MEDS: Z GUARD REMEDY 2 OZ OINT TP SCH (09:19)
[2018-04-04] MEDS: PROSOURCE / PROSTAT (PYXIS) 30 ML UDC GT SCH ×4 (09:24→21:05)
[2018-04-04] MEDS ORDERED: DIATR MEGLU/DIATRIZOATE SODIUM 30 ML BOTTLE (GASTROGRAPHIN) ONE (10:57)
[2018-04-04] MEDS ORDERED: SODIUM BICARBONATE SYR 50 MEQ/50 ML DISP.SYRIN IV ONE (11:00)
[2018-04-04] MEDS ORDERED: POTASSIUM CL. PREMIX PERIPHER. 50 ML IV SCH (12:00)
[2018-04-04] MEDS: IV D5/ 0.9% NACL 1,000 ML IV PRN (12:30)
[2018-04-04 13:04] LABS: INR 1.1 (0.87-1.13)
[2018-04-04 13:15] LABS: D-DIMER 9.72 mg/L(FEU (0.17-0.50)
[2018-04-04 15:42] LABS: BILIRUBIN,DIRECT 0.3 mg/dL (0.0-0.2); BILIRUBIN,TOTAL 0.6 mg/dL (0.2-1.0)
[2018-04-04] MEDS: MICAFUNGIN SODIUM 100 MG in IV NS 0.9% 100 ML IV SCH (19:58)
[2018-04-04] MEDS: METRONIDAZOLE 500MG/ NS 100ML 500 MG in PREMIX 1 EA IV SCH (21:03)
[2018-04-05] VITALS (60 sets, daily range): BP systolic 64–108; BP diastolic 15–52
[2018-04-05] MEDS: BLOOD SUGAR DIAGNOSTIC 1 EACH STRIP IN SCH ×4 (00:23→17:21)
[2018-04-05] MEDS: DEXTROSE 50%-WATER 50 ML DISP.SYRIN IV PRN ×7 (00:24→21:18)
[2018-04-05] MEDS: NOREPINEPHRINE 16 MG in IV D5W 500 ML IV PRN ×4 (00:37→20:23)
[2018-04-05] MEDS: ALBUTEROL HALF STRENGTH 1.25 MG/3 ML VIAL.NEB NEB SCH ×5 (03:52→19:16)
[2018-04-05] MEDS: IPRATROPIUM NEB FS 0.5 MG/2.5 ML AMPUL.NEB NEB SCH ×5 (03:52→19:16)
[2018-04-05] MEDS: SILVER SULFADIAZINE CREAM 25 GM TUBE TP SCH ×2 (04:21→16:00)
[2018-04-05] MEDS: METRONIDAZOLE 500MG/ NS 100ML 500 MG in PREMIX 1 EA IV SCH ×2 (04:23→13:34)
[2018-04-05] MEDS: MIDODRINE HCL (5MG) 5 MG TABLET PO SCH ×3 (04:23→20:32)
[2018-04-05 04:40] LABS: HEMATOCRIT 25 % (33-45); HEMOGLOBIN 7.6 g/dL (11.5-14.8); MEAN CORPUSCULAR HEMOGLOBIN 29 PG (26.0-33.0); MEAN CORPUSCULAR HGB CONC 31 g/dl (31.0-36.0); MEAN CORPUSCULAR VOLUME 94 fL (82-100); RDW COEFFICIENT OF VARIATION 22.5 (11.5-15.0); RED BLOOD CELL COUNT(AUTO) 2.63 MIL/uL (4.0-5.2); WHITE BLOOD COUNT (AUTO) 2.2 K/uL (4.3-11.0)
[2018-04-05] MEDS: NYSTATIN TOP POWDER 15 GM BOTTLE TP SCH ×2 (04:41→16:35)
[2018-04-05 04:43] LABS: PLATELET COUNT (AUTO) 10 /CMM (150-450)
[2018-04-05 04:55] LABS: ALANINE AMINOTRANSFERASE 13 U/L (12-78); ALKALINE PHOSPHATASE 116 U/L (46-116); ASPARTATE AMINOTRANSFERASE 14 U/L (15-37); BAND % (MANUAL) 11 % (0.0-5.0); BILIRUBIN,DIRECT 0.2 mg/dL (0.0-0.2); BILIRUBIN,TOTAL 0.5 mg/dL (0.2-1.0); CALCIUM, SERUM 8.3 mg/dL (8.5-10.1); CHLORIDE 100 mmol/L (98-107); CREATININE 3.4 mg/dL (0.6-1.3); GLUCOSE 187 mg/dL (74-106); LYMPHOCYTES % (MANUAL) 10 % (16-48); MONOCYTES % (MANUAL) 7 % (0-11.0); NEUTROPHILS % (MANUAL) 72 (42-76); POTASSIUM 4.3 mmol/L (3.5-5.1); SODIUM SERUM 137 mmol/L (136-145); TOTAL PROTEIN, SERUM 4.4 g/dL (6.4-8.2)
[2018-04-05 05:12] LABS: CARBON DIOXIDE 9 mmol/L (21-32)
[2018-04-05 05:13] LABS: ALBUMIN 1.1 g/dL (3.4-5.0); UREA NITROGEN, BLOOD 109 mg/dL (7-18)
[2018-04-05] MEDS: IV D5/ 0.9% NACL 1,000 ML IV PRN (06:22)
[2018-04-05] MEDS ORDERED: SODIUM BICARBONATE SYR 50 MEQ/50 ML DISP.SYRIN ONE (06:42)
[2018-04-05] MEDS: LEVOTHYROXINE SODIUM 125 MCG TABLET GT SCH (06:46)
[2018-04-05] MEDS ORDERED: SODIUM BICARBONATE SYR 50 MEQ/50 ML DISP.SYRIN IV ONE (07:00)
[2018-04-05] MEDS ORDERED: SODIUM BICARBONATE SYR 100 MEQ in IV D5/0.45 NACL 1,000 ML IV PRN (07:00)
[2018-04-05] MEDS ORDERED: SODIUM BICARBONATE SYR 100 MEQ in IV D5/0.45 NACL 1,000 ML IV ONE (07:00)
[2018-04-05] MEDS ORDERED: PHENYLEPHRINE 80 MG in IV D5W 250 ML IV PRN (08:00)
[2018-04-05] MEDS ORDERED: VASOPRESSIN INJ 50 UNIT in IV D5W 497.5 ML IV PRN ×2 (08:00→12:30)
[2018-04-05 08:11] LABS: ABG BASE EXCESS -24.6 mmol/L; ABG OXYGEN SATURATION 94.7 % (92.0-98.5); ABG PCO2 23.1 mmHg (35.0-45.0); ABG PO2 112.9 mmHg (75.0-100.0); AaDO2 145.7 mmHg; COHb 0.3 % (0.5-1.5); MetHb 1.1 % (0.0-1.5); O2Hb 93.4 % (94.0-97.0); SITE, ABG A-Line
[2018-04-05] MEDS: PHENYLEPHRINE 80 MG in IV D5W 250 ML IV PRN ×3 (08:12→20:12)
[2018-04-05] MEDS: HYDROCORTISONE SOD SUCCINATE 100 MG/2 ML VIAL IV SCH ×3 (08:29→17:21)
[2018-04-05] MEDS: Z GUARD REMEDY 2 OZ OINT TP SCH (08:30)
[2018-04-05] MEDS: HYDROCODONE/APAP 5/325MG 1 EACH TABLET GT SCH (08:33)
[2018-04-05] MEDS: PROSOURCE / PROSTAT (PYXIS) 30 ML UDC GT SCH ×4 (08:33→20:32)
[2018-04-05] MEDS: FAMOTIDINE (20 MG) 20 MG TABLET GT SCH (08:33)
[2018-04-05] MEDS: AMIODARONE HCL 200 MG TABLET GT SCH ×2 (08:33→16:35)
[2018-04-05] MEDS: LACTOBACILLUS RHAMNOSUS GG 1 EACH CAP.SPRINK GT SCH ×2 (08:33→16:35)
[2018-04-05] MEDS: VIT B CMPLX 3/FA/VIT C/BIOTIN 1 TAB TABLET GT SCH (08:33)
[2018-04-05] MEDS: LEVETIRACETAM SOL (5 ML) 100 MG/ML UDC GT SCH (08:33)
[2018-04-05] MEDS: ASCORBIC ACID 500 MG TABLET GT SCH (08:34)
[2018-04-05] MEDS: MUPIROCIN OINT 2% 22 GM TUBE SCH ×2 (08:35→20:35)
[2018-04-05] MEDS ORDERED: SODIUM BICARBONATE SYR 50 MEQ/50 ML DISP.SYRIN IV STA (08:38)
[2018-04-05] MEDS ORDERED: Sodium Bicarbonate 150 MEQ in IV D5W 1,000 ML IV PRN (09:00)
[2018-04-05] MEDS ORDERED: SODIUM BICARBONATE IV PRN (15:00)
[2018-04-05] MEDS ORDERED: DEXTROSE IV PRN (15:00)
[2018-04-05] MEDS ORDERED: MEROPENEM 500 MG in IV NS 0.9% 50 ML IV SCH (18:00)
[2018-04-05] MEDS: MICAFUNGIN SODIUM 100 MG in IV NS 0.9% 100 ML IV SCH (20:23)
[2018-04-05] MEDS ORDERED: EPINEPHRINE (1:1000) 1 MG/ML AMPUL ONE (22:04)
[2018-04-05] MEDS ORDERED: EPINEPHRINE (1:1000) 2 MG in IV D5W 250 ML IV PRN (22:30)
[2018-04-06] MEDS ORDERED: CALCIUM CHLORIDE 1,000 MG/10 ML DISP.SYRIN IV ONE (00:22)
[2018-04-06] MEDS ORDERED: SODIUM BICARBONATE SYR 50 MEQ/50 ML DISP.SYRIN IV ONE (00:22)
[2018-04-06] MEDS ORDERED: EPINEPHRINE (1:10,000) SYRINGE 1 MG/10 ML DISP.SYRIN IVP ONE (00:22)
[2018-04-07 14:20] LABS: *ANCA ATYPICAL p-ANCA <1:20 titer (Neg:<1:20); *ANCA CYTOPLASMIC (C-ANCA) <1:20 titer (Neg:<1:20); *ANCA PERINUCLEAR (P-ANCA) <1:20 titer (Neg:<1:20); *ANCANTIMYELOPEROXIDASE (MPO) <9.0 U/mL (0.0-9.0); *ANCANTIPROTEINASE 3 (PR-3) AB <3.5 U/mL (0.0-3.5)
== END 2018-04-06 00:23 | disposition expired | DRG 207 ==
LOC: ER 14:56 → TELE-TD 16:55 → ICU 03-21 02:31 → TELE-TD 03-24 19:03 → MEDSG1 03-26 08:34 → ICU 03-30 14:42
PROVIDERS: ADMIT Internal Medicine Rheumatology; ATTEND Internal Medicine Rheumatology
PROC: 02HV33Z Insertion of Infusion Device into Superior Vena Cava, Percutaneous Approach (ICD-10-PCS; 2018-03-20)
PROC: B548ZZA Ultrasonography of Superior Vena Cava, Guidance (ICD-10-PCS; 2018-03-20)
PROC: 5A1945Z Respiratory Ventilation, 24-96 Consecutive Hours (ICD-10-PCS; principal; 2018-03-21)
PROC: 05H533Z Insertion of Infusion Device into Right Subclavian Vein, Percutaneous Approach (ICD-10-PCS; 2018-03-21)
PROC: B546ZZA Ultrasonography of Right Subclavian Vein, Guidance (ICD-10-PCS; 2018-03-21)
PROC: 5A1955Z Respiratory Ventilation, Greater than 96 Consecutive Hours (ICD-10-PCS; 2018-03-30)
PROC: 04HK33Z Insertion of Infusion Device into Right Femoral Artery, Percutaneous Approach (ICD-10-PCS; 2018-03-30)
PROC: 0W9B00Z Drainage of Left Pleural Cavity with Drainage Device, Open Approach (ICD-10-PCS; 2018-04-01)
PROC: 30233R1 Transfusion of Nonautologous Platelets into Peripheral Vein, Percutaneous Approach (ICD-10-PCS; 2018-04-02)
PROC: 30233N1 Transfusion of Nonautologous Red Blood Cells into Peripheral Vein, Percutaneous Approach (ICD-10-PCS; 2018-04-02)
PROC: 05H533Z Insertion of Infusion Device into Right Subclavian Vein, Percutaneous Approach (ICD-10-PCS; 2018-04-04)
PROC: B546ZZA Ultrasonography of Right Subclavian Vein, Guidance (ICD-10-PCS; 2018-04-04)
PROC: 5A2204Z Restoration of Cardiac Rhythm, Single (ICD-10-PCS; 2018-04-06)
DX: J95.851 Ventilator associated pneumonia (principal); A41.9 Sepsis, unspecified organism; N18.6 End stage renal disease; R65.21 Severe sepsis with septic shock; G93.40 Encephalopathy, unspecified; J96.21 Acute and chronic respiratory failure with hypoxia; Z99.11 Dependence on respirator [ventilator] status; J44.0 Chronic obstructive pulmonary disease with (acute) lower respiratory infection; I13.2 Hypertensive heart and chronic kidney disease with heart failure and with stage 5 chronic kidney disease, or end stage renal disease; E87.2 Acidosis; Z93.0 Tracheostomy status; Z93.1 Gastrostomy status; Z99.2 Dependence on renal dialysis; R13.10 Dysphagia, unspecified; Y84.9 Medical procedure, unspecified as the cause of abnormal reaction of the patient, or of later complication, without mention of misadventure at the time of the procedure; Y82.9 Unspecified medical devices associated with adverse incidents; Y92.129 Unspecified place in nursing home as the place of occurrence of the external cause; G40.909 Epilepsy, unspecified, not intractable, without status epilepticus; E11.22 Type 2 diabetes mellitus with diabetic chronic kidney disease; Z79.899 Other long term (current) drug therapy; D69.6 Thrombocytopenia, unspecified; I48.0 Paroxysmal atrial fibrillation; M85.9 Disorder of bone density and structure, unspecified; Z87.891 Personal history of nicotine dependence; M17.11 Unilateral primary osteoarthritis, right knee; D64.9 Anemia, unspecified; L98.9 Disorder of the skin and subcutaneous tissue, unspecified; E87.6 Hypokalemia; E03.9 Hypothyroidism, unspecified; Z22.322 Carrier or suspected carrier of Methicillin resistant Staphylococcus aureus; B96.89 Other specified bacterial agents as the cause of diseases classified elsewhere
CPT/HCPCS: 31720; 36415; 36569; 36600; 71045-TC; 71250-TC; 74018; 80048-TC; 80053-TC; 80076-TC; 80150; 80202-TC; 82140-TC; 82247-TC; 82248-TC; 82306; 82378; 82533; 82728-TC; 82746; 82803-TC; 82962-TC; 83520; 83605-TC; 83615-TC; 83735-TC; 84100-TC; 84134-TC; 84155; 84165; 84443-TC; 84484-TC; 84550-TC; 85025-TC; 85045-TC; 85396; 85652-TC; 85730-TC; 86022; 86256; 86704; 86706; 86709-TC; 86850-TC; 86921-TC; 87040-TC; 87070-TC; 87081-TC; 87186-TC; 87340; 90935-TC; 94002-TC; 94003-TC; 94640-TC; 94760-TC; 94762-TC; 94799-TC; 99082-TC; A4216; A4217; A4606; A4623; A6253; A6402; A6403; A9563; C1750; C1751; J0171; J0278; J1170; J1580; J1720; J1815; J1953; J2020; J2185; J2248; J2370; J2543; J3370; J3480; J3490; J7030; J7040; J7042; J7050; J7060; J7070; P9016-BL; P9034-BL; P9047; Q0163; Q9963; Z7610